=== PATIENT | female | born 2005 | race Caucasian/White ===

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

== ENCOUNTER 2023-03-11 12:53 | Emergency (ER) | payer MEDICAID, SELFPAY ==
[2023-03-11 12:54] VITALS: BP 125/86; PULSE 130; RESP 18; TEMP 36.6; O2SAT 97; BMI 16.3
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
== END 2023-03-11 16:29 | disposition home or self-care (01) ==
PROVIDERS: Emergency Provider Emergency Medicine; Visit Provider Emergency Medicine
DX: S16.1XXA Strain of muscle, fascia and tendon at neck level, initial encounter (principal); Y92.410 Unspecified street and highway as the place of occurrence of the external cause; V43.62XA Car passenger injured in collision with other type car in traffic accident, initial encounter
CPT/HCPCS: 72040; 99282

== ENCOUNTER 2024-03-02 12:31 | Emergency (ER) | payer MEDICAID, SELFPAY ==
[2024-03-02 12:32] VITALS: BP 133/98; BP 136/100; PULSE 109; RESP 18; RESP 20; TEMP 36.2; O2SAT 97
--- NOTE | 2024-03-02 12:57 | EDS_ITS ---
HPI <MARIELA Stone - Last Filed: 03/02/24 19:08> HPI - Psych History of Present Illness Chief Complaint: Anxiety Narrative Narrative: Patient presenting today due to anxiety. She reports that she has a history of painful menses, she started her menstrual period 5 days ago, she has been diagnosed with PMDD. She reports that during her period she will become fatigued and will have painful menstrual cramping. She reports that her menstrual cramping has improved. She has felt intermittently lightheaded and nauseous, she did have an episode of vomiting today. She reports that she became so lightheaded today that she began to feel anxious and was scared that she was going to pass out, prompting her to come in for evaluation. She denies any SI or HI, abdominal pain, chest pain, or shortness of breath. <Dr. Luis Heck DO - Last Filed: 03/02/24 15:30> HPI - Psych Narrative Narrative: Patient presenting today due to anxiety. She reports that she has a history of painful menses, she started her menstrual period 5 days ago, she has been diagnosed with PMDD. She reports that during her period she will become fatigued and will have painful menstrual cramping. She reports that her menstrual cramping has improved. She has felt intermittently lightheaded and nauseous, she did have an episode of vomiting today. She reports that she became so lightheaded today that she began to feel anxious and was scared that she was going to pass out, prompting her to come in for evaluation. She denies any SI or HI, no AH, VH abdominal pain, chest pain, or shortness of breath. [facility] <MARIELA Stone - Last Filed: 03/02/24 19:08> [facility] Medical History COVID Panic attack PTSD (post-traumatic stress disorder) Home Medications elagolix 150 mg tablet (Orilissa) 150 mg PO DAILY #30 tabs 01/07/24 [Rx Last Taken Unknown] hydroxyzine HCl 10 mg tablet 10 mg PO TID PRN 01/07/24 [History Last Taken Unknown] Allergy/AdvReac Type Severity Reaction Status Date / Time turkey AdvReac Fever and Verified 03/02/24 12:32 skin rash Family History Grandmother Cancer Lung- Maternal Social History current occupational status: unemployed Smoking Status: Never smoker alcohol intake: never substance use type: does not use seatbelt use: always do you feel safe at home: Yes additional social history: [place] [facility] [place] [facility] ROS <MARIELA Stone - Last Filed: 03/02/24 19:08> ROS ED Constitutional Constitutional ED: Denies chills or fever(s) Eyes Eyes: Denies change in vision Cardiovascular Cardiovascular: Denies chest pain or palpitations Respiratory/Chest Respiratory/Chest: Denies cough or dyspnea Gastrointestinal Gastrointestinal: Reports nausea and vomiting; Denies abdominal pain Genitourinary Genitourinary ED: Denies dysuria, hematuria or urinary urgency Musculoskeletal Musculoskeletal: Denies arthralgias or myalgias Integumentary Denies rash Neurologic Neurologic: Denies weakness Psychiatric Psychiatric: Reports anxiety; Denies suicidal ideation or suicidal thoughts EXAM <MARIELA Stone - Last Filed: 03/02/24 19:08> Physical Exam Const Vital Signs: 03/02/24 12:32 03/02/24 12:32 03/02/24 14:11 Temperature 97.2 F L 98.1 F Temperature Source Temporal Pulse Rate 109 H 109 H 93 Respiratory Rate 20 H 18 18 Blood Pressure 136/100 H 133/98 H 128/89 H Blood Pressure Mean 112 109 102 Pulse Ox 97 97 99 Oxygen Delivery Method Room Air Room Air Positive well nourished, well developed and no apparent distress General Appearance ED: well developed HEENT Reports normocephalic and head/scalp atraumatic Mouth ED: Yes moist mucous membranes normal Eyes PERRL and EOMs intact bilaterally Neck full ROM and supple Chest Wall inspection of chest normal Resp normal respiratory effort and clear to auscultation bilaterally Cardio regular rate and regular rhythm GI soft to palpation, non-tender, non-distended and no masses Back/Spine normal ROM and normal to inspection Extremity normal to inspection and full ROM Neuro oriented x3, CN's II-XII intact bilaterally, moves all extremities, no focal motor deficits and no sensory deficits noted Sensorium / Orientation: awake and alert Psych mental status grossly normal and thought process normal Appearance: grossly normal Attitude: calm Activity / Motor Behavior: appropriate eye contact Speech: normal speech Mood & Affect: anxious Thought Process: normal thought process Thought Content: normal thought content Insight: insight good Judgement: judgement good Skin no rashes or lesions noted and no wounds <Dr. Luis Heck DO - Last Filed: 03/02/24 15:30> Physical Exam Const Vital Signs: 03/02/24 12:32 03/02/24 12:32 03/02/24 14:11 Temperature 97.2 F L 98.1 F Temperature Source Temporal Pulse Rate 109 H 109 H 93 Respiratory Rate 20 H 18 18 Blood Pressure 136/100 H 133/98 H 128/89 H Blood Pressure Mean 112 109 102 Pulse Ox 97 97 99 Oxygen Delivery Method Room Air Room Air MDM <MARIELA Stone - Last Filed: 03/02/24 19:08> [facility] Narrative Medical decision making narrative: Patient presenting today with her parents due to anxiety. She has felt intermittently lightheaded over the past few days which is normal when she is on her menstrual period. However, she felt worse today and it was starting to make her anxious because she thought she was going to pass out. She denies any HI or SI. She is well-appearing and in no acute distress. She is requesting that labs be drawn as she is concerned that she could be anemic, CBC and BMP will be evaluated. I did offer to give patient hydroxyzine for her anxiety, she declines. She will be given IV fluids and Zofran. Labs overall are unremarkable, she refused the Zofran. On reexamination she reports improvement of her symptoms. She reports that she does follow with a therapist once a week for her anxiety. I encouraged she follow-up with her PCP and therapist. She will be discharged home in stable condition and is comfortable with plan. ED attending note: I evaluated the patient in conjunction with the KIANA. I agree with his/her statements and above findings. I have personally performed a face to face assessment of the patient and have reviewed the KIANA Note. I performed a substantive portion of the visit including all aspects of the following. I personally saw the patient performed chart review, physical exam, reviewed labs, imaging (if obtained), and formulated a treatment and management plan. This note was generated with [employer] dictation software. It may contain incorrect words, spelling, and punctuation that were not noted in review of the chart prior to signing. Lab Data Attestation: I reviewed the patient's lab results. Labs: Laboratory Results - last 24 hr 03/02/24 03/02/24 13:00 13:20 WBC 5.7 RBC 4.64 Hgb 14.2 Hct 41.8 MCV 90.1 MCH 30.6 MCHC 34.0 RDW Std Deviation 38.2 RDW Coeff of Joshua 11.6 Plt Count 317 MPV 9.4 Immature Gran % (Auto) 0.400 Neut % (Auto) 64.1 Lymph % (Auto) 26.9 Beaver % (Auto) 7.4 Eos % (Auto) 0.7 Baso % (Auto) 0.5 Absolute Neuts (auto) 3.6 Absolute Lymphs (auto) 1.53 Nucleated RBC % 0 Sodium 138 Potassium 3.5 Chloride 107 Carbon Dioxide 26.0 Anion Gap 5 BUN 10 Creatinine 0.76 Est GFR (MDRD) Af Amer 124 Est GFR (MDRD) Non-Af 102 BUN/Creatinine Ratio 13.1 Glucose 94 Calcium 9.7 Serum , Qual NEGATIVE <Dr. Luis Heck, DO - Last Filed: 03/02/24 15:30> [facility] MDM Narrative Medical decision making narrative: Patient presenting today due to anxiety. She has felt intermittently lightheaded over the past few days which is normal when she is on her menstrual period. However, she felt worse today and it was starting to make her anxious because she thought she was going to pass out. She denies any HI or SI. She is well-appearing and in no acute distress. She is requesting that labs be drawn as she is concerned that she could be anemic, CBC and BMP will be evaluated. I did offer to give patient hydroxyzine for her anxiety, she declines. She will be given IV fluids and Zofran. ED attending note: I evaluated the patient in conjunction with the KIANA. I agree with his/her statements and above findings. I have personally performed a face to face assessment of the patient and have reviewed the KIAAN Note. I performed a substantive portion of the visit including all aspects of the following. I personally saw the patient performed chart review, physical exam, reviewed labs, imaging (if obtained), and formulated a treatment and management plan. This note was generated with [employer] dictation software. It may contain incorrect words, spelling, and punctuation that were not noted in review of the chart prior to signing. Lab Data Labs: Laboratory Results - last 24 hr 03/02/24 03/02/24 13:00 13:20 WBC 5.7 RBC 4.64 Hgb 14.2 Hct 41.8 MCV 90.1 MCH 30.6 MCHC 34.0 RDW Std Deviation 38.2 RDW Coeff of Joshua 11.6 Plt Count 317 MPV 9.4 Immature Gran % (Auto) 0.400 Neut % (Auto) 64.1 Lymph % (Auto) 26.9 Beaver % (Auto) 7.4 Eos % (Auto) 0.7 Baso % (Auto) 0.5 Absolute Neuts (auto) 3.6 Absolute Lymphs (auto) 1.53 Nucleated RBC % 0 Sodium 138 Potassium 3.5 Chloride 107 Carbon Dioxide 26.0 Anion Gap 5 BUN 10 Creatinine 0.76 Est GFR (MDRD) Af Amer 124 Est GFR (MDRD) Non-Af 102 BUN/Creatinine Ratio 13.1 Glucose 94 Calcium 9.7 Serum , Qual NEGATIVE Discharge Plan Triage Chief Complaint: Anxiety ED Midlevel Provider: Candy Ashley ED Provider: Luis Heck Dx/Rx/DC Orders Clinical Impression: PMDD (premenstrual dysphoric disorder), Anxiety Instructions: PMDD Prescriptions: No Action hydroxyzine HCl 10 mg tablet 10 mg PO TID PRN Orilissa 150 mg tablet 150 mg PO DAILY Qty: 30 1RF Primary Care Provider: [facility] Safia Grullon Referrals: [facility] Safia Grullon [Primary Care Provider] - 5-7 Days Activity Restrictions/Additional Instructions: Please follow-up with your PCP and return for any worsening of your symptoms. Disposition Disposition: Home, Self Care Discharge Date/Time: 03/02/24 14:13
[2024-03-02] MEDS: 0.9% Normal Saline (1000mL) 1,000 ML 999 ML IV (13:09)
[2024-03-02 13:12] LABS: Absolute Lymphocyte Count 1.53 X10^3/uL (0.83-4.51); Absolute Neutrophil Count 3.6 X10^3/uL (2.0-7.7); Basophil# 0.03 X10^3/uL; Basophil% 0.5 % (0-1); Eosinophil# 0.04 X10^3/uL; Eosinophils% 0.7 % (0-5); Hematocrit 41.8 % (37-47); Hemoglobin 14.2 g/dL (12.0-15.0); Lymphocyte # 1.53 X10^3/ul (0.83-4.51); Lymphocyte % 26.9 % (19-41); Mean Corpuscular Hgb 30.6 pg (27.0-32.0); Mean Corpuscular Volume 90.1 fL (81-99); Mean Platelet Vol. 9.4 fl (6.2-12.0); Monocyte# 0.42 X10^3/uL; Monocyte% 7.4 % (0-10); NRBC Flagged by Analyzer 0 % (0-5); Neutrophil # 3.64 X10^3/uL (2.7-7.7); Neutrophil % 64.1 % (47-70); Platelet Count 317 K/mm3 (150-450); RBC Distribution Width CV 11.6 % (11.6-14.6); RBC Distribution Width SD 38.2 fl (35.1-43.9); Red Blood Count 4.64 M/mm3 (4.2-5.4); White Blood Count 5.7 K/mm3 (4.4-11.0)
[2024-03-02 13:29] LABS: Anion Gap 5 (5-15); BUN 10 mg/dL (7-18); BUN/Creat Ratio 13.1 RATIO (10-20); Calcium,Total 9.7 mg/dL (8.5-10.1); Chloride 107 mmol/L (98-107); Creatinine, Serum 0.76 mg/dL (0.55-1.02); EST Glomerular Filtration Rate 102 mL/min (>60); Est Glom Filt Rate - Afr Amer 124 mL/min (>60); Glucose 94 mg/dL (74-106); Potassium 3.5 mmol/L (3.5-5.1); Sodium Level 138 mmol/L (136-145)
[2024-03-02 13:41] LABS: Internal QC Validated? YES +Cl - CLEAR BKGD; Pregnancy, Serum, hCG Quali. NEGATIVE Negative
[2024-03-02 14:11] VITALS: BP 128/89; PULSE 93; RESP 18; TEMP 36.7; O2SAT 99
== END 2024-03-02 14:13 | disposition home or self-care (01) ==
PROVIDERS: Physician Assistant; Emergency Provider Emergency Medicine; Visit Provider Emergency Medicine
DX: F41.9 Anxiety disorder, unspecified (principal); F32.81 Premenstrual dysphoric disorder; Z79.899 Other long term (current) drug therapy
CPT/HCPCS: 80048; 84703; 85025; 96361; 96374; 99282; J7030; A4216

== ENCOUNTER → 2024-07-15 | Outpatient (CLI) | payer MEDICAID, SELFPAY ==
--- NOTE | 2024-07-15 15:44 | US_ITS ---
STUDY: ULTRASOUND OF THE FEMALE PELVIS - COMPLETE REASON FOR EXAM: Female, 18 years old. MENSTRUAL CRAMPS LMP: July 04, 2024. TECHNIQUE: Transvaginal TECHNICAL QUALITY: Adequate. COMPARISON: None. FINDINGS: The uterus is anteverted and is in a midline position. The uterus measures 6 cm x 3.4 cm x 2.5 cm. Normal uterine cervix. The endometrium measures 5.7 mm in thickness, and is heterogeneous (striated). There is no demonstrated endometrial mass. There is no demonstrated myometrial mass. I.U.D. - The patient does not have an I.U.D. The right ovary is visualized. The right ovary measures 1.8 cm x 1.9 cm x 1.4 cm. There is no right ovarian cyst or ovarian mass. There is no visualized right adnexal mass or complex lesion. There is normal arterial and normal venous vascularity. The left ovary is visualized. The left ovary measures 2.7 cm x 2.2 cm x 2 cm. There is no left ovarian cyst or ovarian mass. There is no visualized left adnexal mass or complex lesion. There is normal arterial and normal venous vascularity. There is no fluid in the cul-de-sac. US/Transvaginal Non- IMPRESSION: Normal female pelvis. Electronically Signed: Aric Carrillo MD at 12:43 EDT ,
== END | disposition home or self-care (01) ==
LOC: US 15:42
PROVIDERS: PCP Family Medicine; Referring Provider Family Medicine; Visit Provider Family Medicine
DX: N94.6 Dysmenorrhea, unspecified (principal)
CPT/HCPCS: 76830

== ENCOUNTER 2025-01-29 05:11 | Emergency (ER) | payer MEDICAID, SELFPAY ==
[2025-01-29 05:13] VITALS: BP 147/95; PULSE 104; RESP 13; TEMP 36.8; O2SAT 99; BMI 15.3
--- NOTE | 2025-01-29 05:37 | EKG12_ITS ---
Test Reason : PALPITATIONS Blood Pressure : */* mmHG Vent. Rate : 92 BPM Atrial Rate : 92 BPM P-R Int : 128 ms QRS Dur : 90 ms QT Int : 364 ms P-R-T Axes : 71 93 -2 degrees QTcB Int : 450 ms Normal sinus rhythm with sinus arrhythmia Rightward axis RSR' or QR pattern in V1 suggests right ventricular conduction delay T wave abnormality, consider inferior ischemia Abnormal ECG Confirmed by DEMETRIUS AHUMADA MD ([id number]), sports editor THIERNO EID ([id number]) on 02/01/2025 9:15:21 AM Referred By: ZACK Confirmed By: DEMETRIUS AHUMADA MD
--- NOTE | 2025-01-29 05:37 | RAD_ITS ---
PROCEDURE: CHEST 1 VIEW (PORTABLE) 01/29/2025 REASON FOR EXAM: CHEST PAIN TECHNIQUE: Frontal view of the chest. AP portable upright COMPARISON: None available FINDINGS: The lungs are clear. The cardiac and mediastinal contours are within limits. The visualized osseous structures appear within limits. RAD/Chest 1 View (Portable) IMPRESSION: No evidence of acute disease. Reading Location: [id number]
[2025-01-29 05:45] VITALS: BP 125/83; PULSE 93; RESP 18; O2SAT 98
[2025-01-29] MEDS: 0.9% Normal Saline (1000mL) 1,000 ML 999 ML IV (05:46)
[2025-01-29 05:59] LABS: Absolute Lymphocyte Count 1.88 X10^3/uL (0.83-4.51); Absolute Neutrophil Count 4.3 X10^3/uL (2.0-7.7); Basophil# 0.03 X10^3/uL; Basophil% 0.4 % (0-1); Eosinophil# 0.03 X10^3/uL; Eosinophils% 0.4 % (0-5); Hematocrit 41.4 % (37-47); Hemoglobin 14.7 g/dL (12.0-15.0); Lymphocyte # 1.88 X10^3/ul (0.83-4.51); Mean Corp Hgb Conc 35.5 g/dL (32-36); Mean Corpuscular Hgb 31.2 pg (27.0-32.0); Mean Corpuscular Volume 87.9 fL (81-99); Mean Platelet Vol. 10.1 fl (6.2-12.0); Monocyte# 0.45 X10^3/uL; Monocyte% 6.7 % (0-10); NRBC Flagged by Analyzer 0 % (0-5); Neutrophil # 4.31 X10^3/uL (2.7-7.7); Neutrophil % 64.2 % (47-70); Platelet Count 319 K/mm3 (150-450); RBC Distribution Width CV 11.5 % (11.6-14.6); RBC Distribution Width SD 37.2 fl (35.1-43.9); Red Blood Count 4.71 M/mm3 (4.2-5.4); White Blood Count 6.7 K/mm3 (4.4-11.0)
--- NOTE | 2025-01-29 06:33 | EDS_ITS ---
HPI History of Present Illness Chief Complaint: Palpitations Narrative Narrative: Patient is a 19-year-old female past medical history of PTSD, panic attack, COVID, migraines who presents to the emerged part with a chief complaint of racing heart rate nausea vomiting concern for dental infection. She states that she is currently being worked up for POTS this point in time and notes that this is been going on since 2019 after however having COVID. She states that she has been seeing her dentist today. States that she was given a prescription for amoxicillin for her teeth. Patient states that this evening she noted that her heart rate was elevated to 160s and she was not feeling well overall and was concerned for this dental infection therefore she came here for the valuation management. Patient denies any sick contacts. [facility] Medical History PTSD (post-traumatic stress disorder) Panic attack COVID Home Medications ?Medication ?Instructions ?Recorded ?Last Taken ?Type NK 01/29/25 Unknown History Allergy/AdvReac Type Severity Reaction Status Date / Time turkey AdvReac Fever and Verified 01/29/25 05:13 skin rash Family History Grandmother Cancer Lung- Maternal Social History current occupational status: unemployed Smoking Status: Never smoker alcohol intake: never substance use type: does not use seatbelt use: always do you feel safe at home: Yes additional social history: Currently at [facility] [place] but transferring to [facility]- [facility] ROS ED ROS Narrative Constitutional: Denies fevers, chills, headaches Eyes: Denies changes double vision blurry vision Cardiovascular: Denies chest pain denies palpitations Respiratory: Denies coughing wheezing shortness of breath Abdomen: Denies abdominal pain nausea vomit diarrhea : Denies urinary symptoms Neurological: Denies numbness, weakness, tingling Musculoskeletal: Denies back pain Skin: Denies rashes or lesions EXAM Physical Exam Narrative Exam Narrative: General: Patient lying in bed rest comfortably did not appear to be in acute distress Head: Atraumatic, normocephalic Eyes, ears, nose and throat: PERRL bilaterally, EOMI bilaterally, no conjunctival injection noted, patient has poor dentition noted however no concern for abscess at this point in time, no sublingual swelling Neck: Soft, supple, trachea midline, no concern for Aleksandar angina Cardiovascular: Regular rate and rhythm no murmurs gallops rubs noted Respiratory: Clear to auscultation bilaterally Abdomen: Soft, nondistended, nontender to palpation Extremities: +5/5 strength in bilateral upper and lower extremities, radial pulse +2/4 in the bilateral extremities Neurological: Patient following commands knew that that she was at [facility] years 2024 Skin: Warm, dry, tact no rashes or lesions noted Const Vital Signs: 01/29/25 05:13 01/29/25 05:45 01/29/25 05:45 Temperature 98.2 F Temperature Source Oral Pulse Rate 104 H 93 Respiratory Rate 13 18 Blood Pressure 147/95 H 125/83 H Blood Pressure Mean 112 97 Pulse Ox 99 98 98 Oxygen Delivery Method Room Air Room Air 01/29/25 07:24 Temperature Temperature Source Pulse Rate 88 Respiratory Rate 16 Blood Pressure 110/87 H Blood Pressure Mean 94 Pulse Ox 98 Oxygen Delivery Method Room Air MDM MDM MDM Narrative Medical decision making narrative: Patient is a 19-year-old female who presented to the emerged part with chief complaint of elevated heart rate, nausea vomiting concern for dental infection. On the differential diagnose includes but not limited to cavities, periapical abscess although do not see this clinically on exam, hyperthyroidism, anxiety, and tach. Once workup is obtained reviewed she will be reevaluated. Patient be given IV fluids. Patient's CBC was largely unremarkable no evidence leukocytosis white blood count normal at 6.7, hemoglobin was 14.7, plate count normal 319. Patient sodium normal 137, testing normal 3.3, creatinine was normal at 0.79. Patient's glucose 111, troponin was less than 6, EKG reviewed showed sinus rhythm with a rate of 92 bpm with a AL interval of 128 bpm. Patient TSH was 3.82 with a free T4 and T3 of 2 and 4.1 respectively. Patient's test was negative. Patient's chest x-ray reviewed by myself and by radiology which showed no acute cardiopulmonary processes. On reevaluation the patient she is feeling much better she would like to go home at this point time. Patient ambulated well here in the emergency department without difficulty. She felt well. Patient states that she already has a presc ription at home for her dental pain and she is advised to take this as well as go to her dental appointment today. She is encouraged return with worsening symptoms or concerns otherwise she is to follow-up with her doctor in outpatient setting. She is agreeable this plan all question concerns answered she was discharged home in stable condition. Lab Data Labs: Laboratory Results - last 24 hr 01/29/25 01/29/25 05:23 05:23 WBC 6.7 RBC 4.71 Hgb 14.7 Hct 41.4 MCV 87.9 MCH 31.2 MCHC 35.5 RDW Std Deviation 37.2 RDW Coeff of Joshua 11.5 L Plt Count 319 MPV 10.1 Immature Gran % (Auto) 0.300 Neut % (Auto) 64.2 Lymph % (Auto) 28.0 Alger % (Auto) 6.7 Eos % (Auto) 0.4 Baso % (Auto) 0.4 Absolute Neuts (auto) 4.3 Absolute Lymphs (auto) 1.88 Nucleated RBC % 0 Sodium 137 Potassium 3.3 Chloride 104 Carbon Dioxide 15.9 L Anion Gap 17 H BUN 11 Creatinine 0.79 Estim Creat Clear Calc 71.84 Est GFR (MDRD) Non-Af 110 BUN/Creatinine Ratio 13.8 Glucose 111 H Calcium 9.7 Troponin T High Sens < 6 TSH 3.620 3.820 Free T4 2.00 H Free T3 pg/dL 4.1 H Serum , Qual NEGATIVE Radiography Diagnostic Testing: Clinical Impression(s) from Imaging Studies Chest X-Ray 01/29/25 05:37 IMPRESSION: No evidence of acute disease. Reading Location: [facility] Discharge Plan Triage Chief Complaint: Palpitations ED Provider: Ashu Smith Dx/Rx/DC Orders Clinical Impression: Nausea & vomiting, Palpitations, Pain, dental Prescriptions: No Action NK Primary Care Provider: Shine Castro Referrals: Shine Castro MD [Primary Care Provider] - Activity Restrictions/Additional Instructions: Go to your dentist appointment today. Take antibiotics as prescribed. Return with worsening symptoms or concerns. Your chest x-ray is normal as well as the rest your blood work. Print Language: [place]ese Disposition Disposition: Home, Self Care
[2025-01-29 06:54] LABS: Troponin T High Sensitivity < 6 ng/L (<=14)
[2025-01-29 07:03] LABS: Anion Gap 17 (5-15); BUN 11 mg/dL (4-19); BUN/Creat Ratio 13.8 RATIO (10-20); Calcium,Total 9.7 mg/dL (7.6-11.0); Carbon Dioxide 15.9 mmol/L (21.0-32.0); Chloride 104 mmol/L (98-108); Creatinine, Serum 0.79 mg/dL (0.70-1.20); EST Glomerular Filtration Rate 110 (>60); Estimated Creatinine Clearance 71.84 ml/min (50-250); Glucose 111 mg/dL (70-99); Internal QC Validated? YES +Cl - CLEAR BKGD; Potassium 3.3 mmol/L (3.3-5.1); Pregnancy, Serum, hCG Quali. NEGATIVE Negative; Sodium Level 137 mmol/L (133-145)
[2025-01-29 07:17] LABS: Free T3 4.1 pg/mL (2.18-3.98)
[2025-01-29 07:24] VITALS: BP 110/87; PULSE 88; RESP 16; O2SAT 98
[2025-01-29 07:35] VITALS: BP 110/87; PULSE 88; RESP 17; TEMP 36.3; O2SAT 99
== END 2025-01-29 07:43 | disposition home or self-care (01) ==
PROVIDERS: Emergency Provider Emergency Medicine; PCP Family Medicine; Visit Provider Emergency Medicine
DX: R00.2 Palpitations (principal); R11.2 Nausea with vomiting, unspecified; K08.89 Other specified disorders of teeth and supporting structures
CPT/HCPCS: 71045; 80048; 84439; 84443; 84481; 84484; 84703; 85025; 93005; 96360; 99284; A4216

== ENCOUNTER → 2025-03-09 | Outpatient (CLI) | payer MEDICAID, SELFPAY ==
--- NOTE | 2025-03-09 12:59 | US_ITS ---
PROCEDURE: THYROID 03/09/2025 REASON FOR EXAM: ELEVATED T4 TECHNIQUE: High-frequency thyroid ultrasound, including grayscale and color-flow images. REFERENCE LINKS: TI-RADS Chart: [email or web address] TI-RADS Calculator Tool with Reference Images: [email or web address] COMPARISON: None FINDINGS: Right thyroid lobe size: 4.4 x 1.0 x 1.0 cm Left thyroid lobe size: 3.0 x 1.0 x 1.0 cm Isthmus: 0.1 cm Background parenchymal echotexture is homogeneous. Nodules: None US/Thyroid IMPRESSION: Unremarkable thyroid ultrasound, without suspicious nodularity. Reading Location: [id number]
== END | disposition home or self-care (01) ==
LOC: US 12:58
PROVIDERS: PCP Family Medicine; Referring Provider Family Medicine; Visit Provider Family Medicine
DX: R94.6 Abnormal results of thyroid function studies (principal)
CPT/HCPCS: 76536

== ENCOUNTER → 2025-03-10 | Outpatient (CLI) | payer MEDICAID, SELFPAY ==
--- NOTE | 2025-03-10 12:46 | ECHOD_ITS ---
Reason For Study Reason For Study: PALPITATIONS Procedure This was a 2D Doppler, Color Flow transthoracic echocardiogram. Exam performed in department. Left Ventricle Normal size and thickness. The LV systolic function is normal. EF is 65 %. Normal diastololic function. Right Ventricle Normal right ventricle. Atria The left and right atria are normal. Mitral Valve Normal mitral valve. Trivial mitral valve insufficiency. Tricuspid Valve Trivial tricuspid valve insufficiency. Unable to estimate RV systolic pressure due to insufficient tricuspid regurgitant envelope. Aortic Valve Trisinus/trileaflet aortic valve. Pulmonic Valve The pulmonic valve is not well visualized. Trivial pulmonic valve insufficiency. MMode/2D Measurements & Calculations LVIDd: 3.9 cm IVSd: 0.71 cm Ao root diam: 2.5 cm LVIDs: 2.6 cm LVPWd: 0.58 cm RVDd: 1.9 cm FS: 33.2 % SV(MOD-sp4): 29.8 ml LVAd ap4: 19.0 cm2 LVAd ap2: 16.5 cm2 LVLd ap4: 6.7 cm LVLd ap2: 6.3 cm SI(MOD-sp4): 21.7 ml/m2 EDV(MOD-sp4): 46.8 ml EDV(MOD-sp2): 35.1 ml EDV(sp4-el): 45.8 ml EDV(sp2-el): 36.8 ml LVAs ap4: 10.3 cm2 LVAs ap2: 9.4 cm2 LVLs ap4: 5.7 cm LVLs ap2: 5.6 cm ESV(MOD-sp4): 17.0 ml ESV(MOD-sp2): 12.5 ml ESV(sp4-el): 16.0 ml ESV(sp2-el): 13.3 ml EF(MOD-sp4): 63.6 % EF(MOD-sp2): 64.3 % EF(sp4-el): 65.1 % SV(MOD-sp2): 22.6 ml SV(sp4-el): 29.8 ml LA dimension(2D): 1.8 cm SI(MOD-sp2): 16.5 ml/m2 TAPSE: 1.9 cm Time Measurements MV dec time: 0.16 sec Doppler Measurements & Calculations MV E max vernon: 65.8 cm/sec Lat Peak E' Vernon: 13.9 cm/sec Med Peak E' Vernon: 10.1 cm/sec MV A max vernon: 54.8 cm/sec E/E' lat: 4.7 E/E' med: 6.5 MV E/A: 1.2 MV dec slope: 442.6 cm/sec2 Ao V2 max: 102.2 cm/sec LV V1 max: 87.6 cm/sec Ao max P.2 mmHg LV V1 max P.1 mmHg Ao V2 mean: 71.9 cm/sec LV V1 mean P.5 mmHg Ao mean P.2 mmHg LV V1 mean: 58.5 cm/sec Ao V2 VTI: 16.5 cm LV V1 VTI: 13.9 cm AV (velocity ratio): 0.84 PA V2 max: 81.1 cm/sec PA V2 mean: 63.1 cm/sec ECHO/Echo Complete Interpretation Summary The LV systolic function is normal. EF is 65 %. Normal diastololic function. Ordering Physician: Shine Castro Referring Physician: Shine Castro Performed By: Lakisha Palmer RDCS, RVT
== END | disposition home or self-care (01) ==
LOC: CVS 12:45
PROVIDERS: PCP Family Medicine; Referring Provider Family Medicine; Visit Provider Family Medicine
DX: R00.2 Palpitations (principal)
CPT/HCPCS: 93306

== ENCOUNTER → 2025-06-25 | Outpatient (CLI) | payer MEDICAID, SELFPAY ==
--- NOTE | 2025-06-25 15:34 | RAD_ITS ---
PROCEDURE: SHOULDER MIN 2 VIEWS 06/25/2025 REASON FOR EXAM: LEFT SHOULDER PAIN TECHNIQUE: SHOULDER MIN 2 VIEWS Laterality: Left COMPARISON: None FINDINGS: BONES: No acute fracture or focal osseous lesion. JOINTS: No dislocation. The joint spaces are normal. SOFT TISSUES: The soft tissues are unremarkable. RAD/Shoulder min 2 Views IMPRESSION: No acute findings. Reading Location: [id number]
--- OUTSIDE RECORDS SUMMARY | 2025-06-25 19:10 | XMS RPT_ITS | CCD ---
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 501.9520, L100.0100, L501.4021, L500.2500 ####[facility] [address] [place], [address] Platelets (Bld) [#/Vol] 319 10*3/uL Normal 150-450 [facility] Comment on above: Performed By: #### L 501.9520, L100.0100, L501.4021, L500.2500 ####[facility] [address] [place], [address] RBC (Bld) [#/Vol] 4.71 10*6/uL Normal 4.2-5.4 [facility] Comment on above: Performed By: #### L 501.9520, L100.0100, L501.4021, L500.2500 ####[facility] [address] [place], [address] RDW SD 37.2 fl Normal 35.1-43.9 [facility] Comment on above: Performed By: #### L 501.9520, L100.0100, L501.4021, L500.2500 ####[facility] [address] [place], [address] WBC (Bld) [#/Vol] 6.7 10*3/uL Normal 4.4-11.0 [facility] Comment on above: Performed By: #### L 501.9520, L100.0100, L501.4021, L500.2500 ####[facility] [address] [place], [address] Carbon dioxide, total [Moles /volume] in Central venous bloodOrdered By: Asuh Smith on 01-29-2025 CO2 [Moles/Vol] 15.9 mmol/L Low 21.0-32.0 [facility] Chest 1 View (Portable)on Chest 1 View (Portable) [facility] Imaging Services [address] [place] [address] Chest 1 View (Portable) MR#: [id number] Acct: [id number] Name: DORITA QUIÑONES Rep #: [id number] : 2005 F 19 From: Segundo Martinez MD PCP: Dr. Shine Castro MD Status: [facility] ER Study: Chest 1 View (Portable) Date of Exam: 01/29/25 Exam# [id number] Ordering Dr: Ashu Smith DO PROCEDURE: CHEST 1 VIEW (PORTABLE) 01/29/2025 REASON FOR EXAM: CHEST PAIN TECHNIQUE: Frontal view of the chest. AP portable upright COMPARISON: None available FINDINGS: The lungs are clear. The cardiac and mediastinal contours are within limits. The visualized osseous structures appear within limits. RAD/Chest 1 View (Portable) IMPRESSION: No evidence of acute disease. Reading Location: [id number] CC: Dr. Shine Castro MD; Dr. Ashu Smith DO Certified Pesticide Applicator: Signed Normal [facility] Chloride assayOrdered By: Kwabena Smith on 01-29-2025 Chloride [Moles/Vol] 104 mmol/L 98-108 [facility] Emergency Department Summary on 01-29-2025 Emergency Department Summary [facility] Medical Records Department [address] [place] [address] Emergency Department Summary 01/29/25 MR#: [id number] Acct: [id number] Name: DORITA QUIÑONES Rep #: [id number] : 2005 19 From: Ashu Smith DO PCP: Dr. Shine Castro MD Status:REG ER Location: ED HPI History of Present Illness Chief Complaint: Palpitations Narrative Narrative: Patient is a 19-year-old female past medical history of PTSD, panic attack, COVID, migraines who presents to the emerged part with a chief complaint of racing heart rate nausea vomiting concern for dental infection. She states that she is currently being worked up for POTS this point in time and notes that this is been going on since 2019 after however having COVID. She states that she has been seeing her dentist today. States that she was given a prescription for amoxicillin for her teeth. Patient states that this evening she noted that her heart rate was elevated to 160s and she was not feeling well overall and was concerned for this dental infection therefore she came here for the valuation management. Patient denies any sick contacts. [facility] Medical History PTSD (post-traumatic stress disorder) Panic attack COVID Home Medications ???Medication ???Instructions ???Recorded ???Last Taken ???Type NK 01/29/25 Unknown History Allergy/AdvReac Type Severity Reaction Status Date / Time turkey AdvReac Fever and Verified 01/29/25 05:13 skin rash Family History Grandmother Cancer Lung- Maternal Social History current occupational status: unemployed Smoking Status: Never smoker alcohol intake: never substance use type: does not use seatbelt use: always do you feel safe at home: Yes additional social history: Currently at [facility] but transferring to [facility] ROS ROS ED ROS Narrative Constitutional: Denies fevers, chills, headaches Eyes: Denies changes double vision blurry vision Cardiovascular: Denies chest pain denies palpitations Respiratory: Denies coughing wheezing shortness of breath Abdomen: Denies abdominal pain nausea vomit diarrhea : Denies urinary symptoms Neurological: Denies numbness, weakness, tingling Musculoskeletal: Denies back pain Skin: Denies rashes or lesions EXAM Physical Exam Narrative Exam Narrative: General: Patient lying in bed rest comfortably did not appear to be in acute distress Head: Atraumatic, normocephalic Eyes, ears, nose and throat: PERRL bilaterally, EOMI bilaterally, no conjunctival injection noted, patient has poor dentition noted however no concern for abscess at this point in time, no sublingual swelling Neck: Soft, supple, trachea midline, no concern for Aleksandar angina Cardiovascular: Regular rate and rhythm no murmurs gallops rubs noted Respiratory: Clear to auscultation bilaterally Abdomen: Soft, nondistended, nontender to palpation Extremities: +5/5 strength in bilateral upper and lower extremities, radial pulse +2/4 in the bilateral extremities Neurological: Patient following commands knew that that she was at [facility] years 2024 Skin: Warm, dry, tact no rashes or lesions noted Const Vital Signs: 01/29/25 05:13 01/29/25 05:45 01/29/25 05:45 Temperature 98.2 F Temperature Source Oral Pulse Rate 104 H 93 Respiratory Rate 13 18 Blood Pressure 147/95 H 125/83 H Blood Pressure Mean 112 97 Pulse Ox 99 98 98 Oxygen Delivery Method Room Air Room Air 01/29/25 07:24 Temperature Temperature Source Pulse Rate 88 Respiratory Rate 16 Blood Pressure 110/87 H Blood Pressure Mean 94 Pulse Ox 98 Oxygen Delivery Method Room Air MDM MDM MDM Narrative Medical decision making narrative: Patient is a 19-year-old female who presented to the emerged part with chief complaint of elevated heart rate, nausea vomiting concern for dental infection. On the differential diagnose includes but not limited to cavities, periapical abscess although do not see this clinically on exam, hyperthyroidism, anxiety, and tach. Once workup is obtained reviewed she will be reevaluated. Patient be given IV fluids. Patient's CBC was largely unremarkable no evidence leukocytosis white blood count normal at 6.7, hemoglobin was 14.7, plate count normal 319. Patient sodium normal 137, testing normal 3.3, creatinine was normal at 0.79. Patient's glucose 111, troponin was less than 6, EKG reviewed showed sinus rhythm with a rate of 92 bpm with a [place] interval of 128 bpm. Patient TSH was 3.82 with a free T4 and T3 of 2 and 4.1 respectively. Patient's test was negative. Patient's chest x-ray revie (more content not included)... Normal [facility] Eosinophil percentageOrdered By: Ashu Smith on 01-29-2025 Eosinophils/100 WBC (Bld) 0.4 % 0-5 [facility] Erythrocyte distribution wid th ratioOrdered By: Ashu Smith on 01-29-2025 Erythrocyte distribution width (RBC) [Ratio] 11.5 % Low 11.6-14.6 [facility] Erythrocyte distribution wid th standard deviationOrdered By: Ashu Smith on 01-29-2025 Erythrocyte distribution width (RBC) [Entitic vol] 37.2 fL 35.1-43.9 [facility] Erythrocyte distribution width (RBC) [Ratio] 37.2 fl 35.1-43.9 [facility] Estimation of creatinine chika aranceOrdered By: Ashu Smith on 01-29-2025 Estimated Creatinine Clearance Calc 71.84 ml/min 50-250 [facility] Free T3on 01-29-2025 Free T3 [Mass/Vol] 4.1 pg/mL High 2.18-3.98 [facility] Comment on above: Performed By: #### L 506.0400, L501.9520, L501.18585, L700.6800 #### [facility] [address] [place], [address] Free [id number] By: Ashu packer on 01-29-2025 Free T3 [Mass/Vol] 4.1 pg/mL High 2.18-3.98 [facility] Free Triiodothyronine (T3) pg/dL 4.1 pg/mL High 2.18-3.98 [facility] GFR/1.73 sq M.predicted cyrus g non-blacks MDRD (S/P/Bld) [Vol rate/Area]Ordered By: Ashu Smith on 01-29-2025 Estimated GFR (MDRD) Non-Af Amer 110 >60 [facility] Comment on above: mL/min/1.73m2 CKD-EP I Creatinine Equation (2020) Glomerular filtration rate ( GFR) estimation/1.73 sq m using serum, plasma, or whole bOrdered By: Ashu Smith on 01-29-2025 GFR/1.73 sq M.predicted among non-blacks MDRD (S/P/Bld) [Vol rate/Area] 110 mL/min/{1.73_m2} >60 [facility] Comment on above: mL/min/1.73m2 CKD-EP I Creatinine Equation (2020) Hematocrit Auto (Bld) [Volum e fraction]Ordered By: Ashu Smith on 01-29-2025 Hematocrit (Bld) [Volume fraction] 41.4 % 37-47 [facility] Hemoglobin measurementOrdere d By: Ashu Smith on 01-29-2025 Hemoglobin (Bld) [Mass/Vol] 14.7 g/dL 12.0-15.0 [facility] Immature granulocytes/100 WB C Auto (Bld)Ordered By: Ashu Smith on 01-29-2025 Immature granulocytes/100 WBC (Bld) 0.300 % 0.0-0.9 [facility] Comment on above: IG% - Immature Granu locytes (promyelocytes, myelocytes and metamyelocytes) > 1% indicates that a LEFT SHIFT is Present. L499.0042on 01-29-2025 Trop T High Sen Normal <=14 [facility] Comment on above: Result Comment: LISS ENT DISCHARGED-NO SPECIMEN REC'D Performed By: #### L 499.0042 ####[facility] [address] [place], [address] L499.0043on 01-29-2025 Trop T High Sen Normal <=14 [facility] Comment on above: Result Comment: Canc elled via OM: Order cancelled - Patient discharged Performed By: #### L 499.0043 ####[facility] [address] [place], [address] L501.4021on 01-29-2025 Trop T High Sen < 6 Normal <=14 [facility] Comment on above: Performed By: #### L 501.9520, L100.0100, L501.4021, L500.2500 ####[facility] [address] [place], [address] Lymphocytes Auto (Unsp spec) [#/Vol]Ordered By: Ashu Smith on 01-29-2025 Lymphocytes (Bld) [#/Vol] 1.88 10*3/uL 0.83-4.51 [facility] Lymphocytes/100 WBC Auto (Un sp spec)Ordered By: Ashu Smith on 01-29-2025 Lymphocytes/100 WBC (Bld) 28.0 % 19-41 [facility] MCV (mean corpuscular volume ) determinationOrdered By: Ashu Smith on 01-29-2025 MCV (RBC) [Entitic vol] 87.9 fL 81-99 [facility] Mean corpuscular hemoglobin (MCH) determinationOrdered By: Ashu Smith on 01-29-2025 MCH (RBC) [Entitic mass] 31.2 pg 27.0-32.0 [facility] Mean corpuscular hemoglobin concentration (MCHC) determinationOrdered By: Ashu Smith on 01-29-2025 MCHC (RBC) [Mass/Vol] 35.5 g/dL 32-36 [facility] Mean platelet volume determi nationOrdered By: Ashu Smith on 01-29-2025 Platelet mean volume (Bld) [Entitic vol] 10.1 fL 6.2-12.0 [facility] Monocyte percentageOrdered B y: Ashu Smith on 01-29-2025 Monocytes/100 WBC (Bld) 6.7 % 0-10 [facility] Neutrophil percentageOrdered By: Ashu Smith on 01-29-2025 Neutrophils/100 WBC (Bld) 64.2 % 47-70 [facility] No Panel InformationOrdered By: Ashu Smith on 01-29-2025 Troponin T High Sensitivity < 6 ng/L <14 [facility] Nucleated red blood cell per centageOrdered By: Ashu Smith on 01-29-2025 Nucleated RBC/100 WBC (Bld) [Ratio] 0 % 0-5 [facility] Platelet countOrdered By: Kwabena Smith on 01-29-2025 Platelets (Bld) [#/Vol] 319 10*3/uL 150-450 [facility] Potassium (Unsp spec) [Mass/ Vol]Ordered By: Ashu Smith on 01-29-2025 Potassium [Moles/Vol] 3.3 mmol/L 3.3-5.1 [facility] Potassium measurement (mass/ volume)Ordered By: Ashu Smith on 01-29-2025 Potassium (Unsp spec) [Mass/Vol] 3.3 mmol/L 3.3-5.1 [facility] ,Serum,hCG Quali.on 01-29-2025 HCG, SERUM QUAL Negative Normal [facility] Comment on above: Performed By: #### L 506.0400, L501.9520, L501.85483, L700.6800 #### [facility] [address] [place], [address] RBC Auto (Bld) [#/Vol]Ordere d By: Ashu Smith on 01-29-2025 RBC (Bld) [#/Vol] 4.71 10*6/uL 4.2-5.4 [facility] Serum beta-hCG test, qualita tiveOrdered By: Ashu Smith on 01-29-2025 Beta HCG ( test) Ql Negative [facility] Serum creatinine measurement (mass/volume)Ordered By: Ashu Smith on 01-29-2025 Creatinine [Mass/Vol] 0.79 mg/dL 0.70-1.20 [facility] Serum glucose measurement (m ass/volume)Ordered By: Ashu Smith on 01-29-2025 Glucose [Mass/Vol] 111 mg/dL High 70-99 [facility] Serum or plasma calcium chelsea urement (mass/volume)Ordered By: Ashu Smith on 01-29-2025 Calcium [Mass/Vol] 9.7 mg/dL 7.6-11.0 [facility] Serum or plasma urea nitroge n measurement (mass/volume)Ordered By: Ashu Smith on 01-29-2025 Urea nitrogen [Mass/Vol] 11 mg/dL 4-19 [facility] Sodium levelOrdered By: Gilberto Smith on 01-29-2025 Sodium [Moles/Vol] 137 mmol/L 133-145 [facility] T4 Free Directon 01-29-2025 T4 FREE DIRECT 2.00 ng/dL High 0.76-1.46 [facility] Comment on above: Performed By: #### L 506.0400, L501.9520, L501.82635, L700.6800 #### [facility] [address] [place], [place], [address] T4 freeOrdered By: Ashu packer on 01-29-2025 Free T4 [Mass/Vol] 2.00 ng/dL High 0.76-1.46 [facility] TSH DL <= 0.005 mIU/L QnOrde red By: Ashu Smith on 01-29-2025 Thyroid Stimulating Hormone (TSH) 3.820 uIU/mL 0.300-4.200 [facility] TSH Qn 3.820 uIU/mL 0.300-4.200 [facility] Thyroid Stim Hormone (TSH)on 01-29-2025 TSH 3.820 uIU/mL Normal 0.300-4.200 [facility] Comment on above: Performed By: #### L 506.0400, L501.9520, L501.47887, L700.6800 #### [facility] [address] [place], [address] TSH 3.620 uIU/mL Normal 0.300-4.200 [facility] Comment on above: Performed By: #### L 501.9520, L100.0100, L501.4021, L500.2500 ####[facility] [address] [place], [address] White blood cell (WBC) count Ordered By: Ashu Smith on 01-29-2025 WBC (Bld) [#/Vol] 6.7 10*3/uL 4.4-11.0 [facility] COMPLETE BLOOD COUNT WITH DI FFERENTIALon 12-05-2024 Basophil \P\ 0.02 10E3/???L Invalid Interpretation Code 0.02-0.06 [facility] Comment on above: Order Comment: Relea se to patient->Automatic Basophils/100 WBC (Bld) 0.2 % Low 0.3-0.9 [facility] Comment on above: Order Comment: Relea se to patient->Automatic Eosinophil \P\ 0.00 10E3/???L Low 0.04-0.27 [facility] Comment on above: Order Comment: Relea se to patient->Automatic Eosinophils/100 WBC (Bld) 0.0 % Low 0.6-3.8 [facility] Comment on above: Order Comment: Relea se to patient->Automatic Erythrocyte distribution width (RBC) [Ratio] 11.1 % Low 11.9-14.8 [facility] Comment on above: Order Comment: Relea se to patient->Automatic Hematocrit (Bld) [Volume fraction] 42.1 % Invalid Interpretation Code 35.5-44.6 [facility] Comment on above: Order Comment: Relea se to patient->Automatic Hemoglobin (Bld) [Mass/Vol] 14.9 g/dL High 11.4-14.8 [facility] Comment on above: Order Comment: Relea se to patient->Automatic Immature granulocytes/100 WBC (Bld) 0.4 % Invalid Interpretation Code 0.2-0.5 [facility] Comment on above: Order Comment: Relea se to patient->Automatic Result Comment: Hannah ture Granulocyte Percent includes promyelocytes, myelocytes,and metamyelocytes. IG% > 1.0 indicates a left shift is present. With automated differentials, bands are included in the neutrophil count and not in the Immature Granulocyte Percent. Lymphocyte \P\ 0.51 10E3/???L Low 1.51-2.99 [facility] Comment on above: Order Comment: Relea se to patient->Automatic Lymphocytes/100 WBC (Bld) 4.5 % Low 21.8-42.1 [facility] Comment on above: Order Comment: Relea se to patient->Automatic MCH (RBC) [Entitic mass] 31.0 pg Invalid Interpretation Code 25.7-31.2 [facility] Comment on above: Order Comment: Relea se to patient->Automatic MCHC 35.4 % High 31.3-34.0 [facility] Comment on above: Order Comment: Relea se to patient->Automatic MCV (RBC) [Entitic vol] 87.5 fL Invalid Interpretation Code 80.7-93.7 [facility] Comment on above: Order Comment: Relea se to patient->Automatic Monocyte \P\ 0.64 10E3/???L Invalid Interpretation Code 0.36-0.77 [facility] Comment on above: Order Comment: Relea se to patient->Automatic Monocytes/100 WBC (Bld) 5.7 % Invalid Interpretation Code 5.6-10.2 [facility] Comment on above: Order Comment: Relea se to patient->Automatic Neutrophil \P\ 10.10 10E3/???L High 2.43-6.42 [facility] Comment on above: Order Comment: Relea se to patient->Automatic Neutrophils/100 WBC (Bld) 89.2 % High 46.0-68.6 [facility] Comment on above: Order Comment: Relea se to patient->Automatic Nucleated RBC/100 WBC (Bld) [Ratio] 0.0 % Invalid Interpretation Code 0.0-0.0 [facility] Comment on above: Order Comment: Relea se to patient->Automatic Platelet mean volume (Bld) [Entitic vol] 10.1 fL Invalid Interpretation Code 9.6-11.9 [facility] Comment on above: Order Comment: Relea se to patient->Automatic Platelets 261 10E3/???L Invalid Interpretation Code 150-400 [facility] Comment on above: Order Comment: Relea se to patient->Automatic RBC 4.81 10E6/???L Invalid Interpretation Code 4.03-4.91 [facility] Comment on above: Order Comment: Relea se to patient->Automatic WBC 11.3 10E3/???L High 4.9-10.0 [facility] Comment on above: Order Comment: Relea se to patient->Automatic COMPREHENSIVE METABOLIC PANE Kyree 12-05-2024 Albumin [Mass/Vol] 4.5 g/dL Invalid Interpretation Code 3.5-5.0 [facility] Comment on above: Order Comment: Relea se to patient->Automatic ALP [Catalytic activity/Vol] 71 U/L Invalid Interpretation Code 35-104 [facility] Comment on above: Order Comment: Relea se to patient->Automatic Result Comment: Hemo lysis detected. Results may be falsely decreased. Interpret results with caution. ALT [Catalytic activity/Vol] 12 U/L Invalid Interpretation Code <=34 [facility] Comment on above: Order Comment: Relea se to patient->Automatic Result Comment: Hemo lysis detected. Results may be falsely elevated. Interpret results with caution. AST [Catalytic activity/Vol] 104 U/L High <=31 [facility] Comment on above: Order Comment: Relea se to patient->Automatic Result Comment: Hemo lysis detected. Results may be falsely elevated. Interpret results with caution. BILI,TOTAL 0.6 mg/dL Invalid Interpretation Code <=1.0 [facility] Comment on above: Order Comment: Relea se to patient->Automatic Result Comment: Hemo lysis detected. Results may be impacted variably as either falsely elevated or falsely decreased. Interpret results with caution. Calcium [Mass/Vol] 9.4 mg/dL Invalid Interpretation Code 7.6-11.0 [facility] Comment on above: Order Comment: Relea se to patient->Automatic Chloride [Moles/Vol] 98 mmol/L Invalid Interpretation Code 96-108 [facility] Comment on above: Order Comment: Relea se to patient->Automatic CO2 [Moles/Vol] 20.8 mmol/L Low 22.0-29.0 [facility] Comment on above: Order Comment: Relea se to patient->Automatic Result Comment: Hemo lysis detected. Results may be impacted variably as either falsely elevated or falsely decreased. Interpret results with caution. Creatinine [Mass/Vol] 0.67 mg/dL Invalid Interpretation Code 0.50-1.00 [facility] Comment on above: Order Comment: Relea se to patient->Automatic Result Comment: Hemo lysis detected. Results may be falsely decreased. Interpret results with caution. GFR/1.73 sq M.predicted among non-blacks MDRD (S/P/Bld) [Vol rate/Area] mL/min/{1.73_m2} Invalid Interpretation Code >=60 [facility] Comment on above: Order Comment: Relea se to patient->Automatic Glucose [Mass/Vol] 139 mg/dL High 70-99 [facility] Comment on above: Order Comment: Relea se to patient->Automatic Result Comment: Crit birdie for Diagnosis of Diabetes: Fasting Specimen (no caloric intake for at least 8 hours): <100 mg/dL Normal 100-125 mg/dL Increased risk for Diabetes >125 mg/dL Diagnostic for Diabetes Random Glucose (any time of day without regard to last meal): > or = 200 mg/dL plus Classic Symptoms of Diabetes Potassium [Moles/Vol] 8.7 mmol/L Critically high 3.3-5.1 [facility] Comment on above: Order Comment: Relea se to patient->Automatic Result Comment: Hemo lysis detected. Results may be falsely elevated. Interpret results with caution. This result was previously suppressed from the chart. Protein [Mass/Vol] 8.6 g/dL High 5.9-8.4 [facility] Comment on above: Order Comment: Relea se to patient->Automatic Result Comment: Hemo lysis detected. Results may be falsely elevated. Interpret results with caution. Sodium [Moles/Vol] 128 mmol/L Low 133-145 [facility] Comment on above: Order Comment: Relea se to patient->Automatic Urea nitrogen [Mass/Vol] 8 mg/dL Invalid Interpretation Code 4-19 [facility] Comment on above: Order Comment: Relea se to patient->Automatic Complete Blood Count with Di fferentialOrdered By: Briseyda Dubon on 12-05-2024 Basophils (Bld) [#/Vol] 0.02 10*3/uL [facility] Basophils/100 WBC (Bld) 0.2 % Low 0.3 - 0.9 % [facility] Eosinophils (Bld) [#/Vol] 0 10*3/uL Low [facility] Eosinophils/100 WBC (Bld) 0 % Low 0.6 - 3.8 % [facility] Erythrocyte distribution width (RBC) [Ratio] 11.1 % Low 11.9 - 14.8 % [facility] Hematocrit (Bld) [Volume fraction] 42.1 % 35.5 - 44.6 % [facility] Hemoglobin (Bld) [Mass/Vol] 14.9 g/dL High 11.4 - 14.8 g/dL [facility] Immature granulocytes/100 WBC (Bld) 0.4 % 0.2 - 0.5 % [facility] Comment on above: Immature Granulocyte Percent includes promyelocytes, myelocytes,and metamyelocytes. IG% > 1.0 indicates a left shift is present. With automated differentials, bands are included in the neutrophil count and not in the Immature Granulocyte Percent. Interpretation and review of laboratory results Abnormal [facility] Lymphocytes (Bld) [#/Vol] 0.51 10*3/uL Low [facility] Lymphocytes/100 WBC (Bld) 4.5 % Low 21.8 - 42.1 % [facility] MCH (RBC) [Entitic mass] 31 pg 25. 7 - 31.2 pg [facility] MCHC (RBC) [Mass/Vol] 35.4 % High 31.3 - 34.0 % [facility] MCV (RBC) [Entitic vol] 87.5 fL 80.7 - 93.7 fL [facility] Monocytes (Bld) [#/Vol] 0.64 10*3/uL [facility] Monocytes/100 WBC (Bld) 5.7 % 5.6 - 10.2 % [facility] Neutrophils (Bld) [#/Vol] 10.1 10*3/uL High [facility] Neutrophils/100 WBC (Bld) 89.2 % High 46.0 - 68.6 % [facility] Nucleated RBC/100 WBC (Bld) [Ratio] 0 % 0.0 - 0.0 % [facility] Platelet mean volume (Bld) [Entitic vol] 10.1 fL 9.6 - 11.9 fL [facility] Platelets (Bld) [#/Vol] 261 10*3/uL [facility] RBC (Bld) [#/Vol] 4.81 10*6/uL [facility] WBC (Bld) [#/Vol] 11.3 10*3/uL [facility] Comprehensive metabolic pane kyree 12-05-2024 Albumin BCG dye [Mass/Vol] 4.5 g/dL 3.5 - 5.0 g/dL [facility] ALP [Catalytic activity/Vol] 71 U/L 35 - 104 U/L [facility] Comment on above: Hemolysis detected. Results may be falsely decreased. Interpret results with caution. ALT With P-5'-P [Catalytic activity/Vol] 12 [facility]/L [facility] Comment on above: Hemolysis detected. Results may be falsely elevated. Interpret results with caution. AST With P-5'-P [Catalytic activity/Vol] 104 U/L High NINF - 31 U/L [facility] Comment on above: Hemolysis detected. Results may be falsely elevated. Interpret results with caution. Bilirubin [Mass/Vol] 0.6 mg/dL NINF - 1.0 mg/dL [facility] Comment on above: Hemolysis detected. Results may be impacted variably as either falsely elevated or falsely decreased. Interpret results with caution. Calcium [Mass/Vol] 9.4 mg/dL 7.6 - 11. 0 mg/dL [facility] Chloride [Moles/Vol] 98 mmol/L 96 - 10 8 mmol/L [facility] Creatinine [Mass/Vol] 0.67 mg/dL 0.50 - 1.00 mg/dL [facility] Comment on above: Hemolysis detected. Results may be falsely decreased. Interpret results with caution. eGFR - PINF [facility] Glucose [Mass/Vol] 139 mg/dL High 70 - 99 mg/dL [facility] Comment on above: Criteria for Diagnos is of Diabetes: Fasting Specimen (no caloric intake for at least 8 hours): <100 mg/dL Normal 100-125 mg/dL Increased risk for Diabetes >125 mg/dL Diagnostic for Diabetes Random Glucose (any time of day without regard to last meal): > or = 200 mg/dL plus Classic Symptoms of Diabetes HCO3 (P) [Moles/Vol] 20.8 mmol/L Low 22.0 - 29.0 mmol/L [facility] Comment on above: Hemolysis detected. Results may be impacted variably as either falsely elevated or falsely decreased. Interpret results with caution. Interpretation and review of laboratory results Abnormal [facility] Potassium (BldA) [Moles/Vol] 8.7 mmol/L Critically high 3.3 - 5.1 mmol/L [facility] Comment on above: Hemolysis detected. Results may be falsely elevated. Interpret results with caution. This result was previously suppressed from the chart. Protein [Mass/Vol] 8.6 g/dL High 5.9 - 8.4 g/dL [facility] Comment on above: Hemolysis detected. Results may be falsely elevated. Interpret results with caution. Sodium [Moles/Vol] 128 mmol/L Low 133 - 145 mmol/L [facility] Urea nitrogen [Mass/Vol] 8 mg/dL 4 - 19 mg/d L [facility] ED Provider Progress Noteon 12-05-2024 [employer] Professor Authentication Interface Message Text Dorita Quiñones : 2005 Chief Complaint Patient presents with Tachycardia Near Syncope Allergies Allergen Reactions Other Other (See Comments) [place]- emesis and fever DOS: 12/05/2024 Dorita is a 19 year old female with PTSD presenting with pre-syncope. She states last night she felt nauseous, sore throat, nasal congestion, post-nasal drip, light-headed, and felt like heart was racing. Woke up today still feeling the same. Denies emesis, diarrhea, cough. Decreased PO intake today since waking up at noon. Normal urine output. Feels like heart is racing but no current heart palpitations. States she has had heart palpitations in the past and previously saw cardiology for them. Endorses feeling light headed when she stands up. Denies chest pain. Boyfriend and his parents with upper respiratory symptoms the past day. With review of patient's growth chart, it appears she has been under weight for several years. When discussing weight she states that she eats three meals a day and drinks fluids. She does endorse fatigue on a daily basis. She recalls having lab work done in the past for it. Last menstrual cycle was 2 weeks ago. The history is provided by the patient. No print traffic manager was used. Review of Systems Review of Systems Constitutional: Positive for appetite change. Negative for fever. HENT: Positive for congestion, postnasal drip, rhinorrhea and sore throat. Respiratory: Negative for cough and chest tightness. Cardiovascular: Negative for chest pain and palpitations. Gastrointestinal: Positive for nausea. Negative for abdominal pain, diarrhea and vomiting. Genitourinary: Negative for decreased urine volume, dysuria, frequency and urgency. Musculoskeletal: Negative for myalgias. Skin: Negative for rash. Neurological: Positive for light-headedness. Negative for headaches. Patient History History reviewed. No pertinent past medical history. History reviewed. No pertinent surgical history. Pediatric History Patient Parents CAMI QUIÑONES (Mother) Other Topics Concern Not on file Social History Narrative Not on file ED Triage Vitals Date and Time Temp Temp src Pulse Resp BP SpO2 User 12/05/24 1347 37.8 C (100 F) Temporal 134 20 139/86 98 % AD Physical Exam Vitals and nursing note reviewed. Constitutional: General: She is not in acute distress. Appearance: Normal appearance. HENT: Head: Normocephalic and atraumatic. Right Ear: Tympanic membrane normal. Left Ear: Tympanic membrane normal. Nose: Nose normal. No congestion. Mouth/Throat: Mouth: Mucous membranes are moist. Pharynx: Posterior oropharyngeal erythema present. Eyes: Conjunctiva/sclera: Conjunctivae normal. Cardiovascular: Rate and Rhythm: Regular rhythm. Tachycardia present. Pulses: Normal pulses. Heart sounds: Normal heart sounds. No murmur heard. Pulmonary: Effort: Pulmonary effort is normal. Breath sounds: Normal breath sounds. No wheezing, rhonchi or rales. Abdominal: General: Abdomen is flat. Bowel sounds are normal. There is no distension. Palpations: Abdomen is soft. Tenderness: There is no abdominal tenderness. Skin: General: Skin is warm and dry. Capillary Refill: Capillary refill takes less than 2 seconds. Neurological: Mental Status: She is alert. Procedures Encounter Documentation/Hando ff: Diagnosis' considered: Labs/Radiology: Recent Results (from the past 24 hours) HCG, Urine Collection Time: 12/05/24 4:04 PM Result Value Ref Range HCG,Urine Negative Negative Urinalysis, Complete (Chemistry & Micro) Collection Time: 12/05/24 4:04 PM Result Value Ref Range Color Colorless Character Clear Specific [place] 1.009 Reference Range: 1.005-1.030 Leukocyte Esterase Negative Negative Asya/uL Nitrite Negative Negative pH 8.0 5.0 - 8.0 Hemoglobin Negative Negative Protein Negative Neg.-Trace Glucose Normal Normal KETONES 1+ (A) Negative Urobilinogen Normal Normal mg/dL Bilirubin Negative Negative Volume 12 mL WBC 2.0 <=20.0 /uL RBC 8.0 <=20.0 /uL Squamous Epithelial Cells 1.0 <=20.0 /uL Transitional Epithelial Cells 0.0 <=20.0 /uL Renal Epithelial Cells 0.0 <=20.0 /uL Influenza A/B, Qualitative NAAT Collection Time: 12/05/24 4:04 PM Specimen: Nasal; Swab Result Value Ref Range Influenza A, Qualitative NAAT Negative Negative Influenza B, Qualitative NAAT Negative Negative Complete Blood Count with Differential Collection Time: 12/05/24 4:55 PM Result Value Ref Range WBC 11.3 (H) 4.9 - 10.0 10E3/ L Nucleated RBC Percent 0.0 0.0 - 0.0 % RBC 4.81 4.03 - 4.91 10E6/ L Hemoglobin 14.9 (H) 11.4 - 14.8 g/dL Hematocrit 42.1 35.5 - 44.6 % MCV 87.5 80.7 - 93.7 fL MCH 31.0 25.7 - 31.2 pg MCHC 35.4 (H) 31.3 - 34.0 % RDW CV 11.1 (L) 11.9 - 14.8 % Platelets 261 150 - 400 10E3/ L MPV 10.1 9.6 - 11.9 fL % Immature Granulocyte 0.4 0.2 - 0.5 % Neutrophil # 10.10 (H) 2.43 - 6.42 10E3/ L Lymphocyte (more content not included)... Normal [facility] HCG, URINEon 12-05-2024 Beta HCG ( test) Ql (U) Negative Invalid Interpretation Code Negative [facility] Comment on above: Order Comment: Reaso n for preventing automatic release->Other Release to patient->Manual release only Result Comment: Nonp regnant females and males-Negative females-Positive HCG, UrineOrdered By: Briana daniels on 12-05-2024 HCG ( test) Ql (U) Negative Negative [facility] Comment on above: Non females and males-Negative females-Positive Interpretation and review of laboratory results Normal [facility] INFLUENZA A/B QUALITATIVE NA ATon 12-05-2024 INFLUENZA A/B QUALITATIVE NAAT Influenza A, Qualitative NAAT Negative Influenza B, Qualitative NAAT Negative Invalid Interpretation Code Negative [facility] Comment on above: Order Comment: Negat shaw results do not preclude influenza virus infection and should not be used as the sole basis for diagnosis, treatment or other patient management decisions. Method: Rapid molecular in vitro diagnostic test utilizing isothermal nucleic acid amplification technology for the differential and qualitative detection of influenza A and influenza B viral nucleic acids using the ID NOW Influenza A & B 2 assay from [employer]. This test is approved for use by the FDA as waived under CLIA. Release to patient->Automatic Influenza A/B, Qualitative N AATon 12-05-2024 FLUAV RNA FEDERICA+probe Ql (Resp) Negative Negative [facility] FLUBV RNA FEDERICA+probe Ql (Resp) Negative Negative [facility] Interpretation and review of laboratory results Normal [facility] Negative results do not preclude influenza virus infection and should not be used as the sole basis for diagnosis, treatment or other patient management decisions. Method: Rapid molecular in vitro diagnostic test utilizing isothermal nucleic acid amplification technology for the differential and qualitative detection of influenza A and influenza B viral nucleic acids using the ID NOW Influenza A & B 2 assay from [employer]. This test is approved for use by the FDA as waived under CLIA. [facility] MAGNESIUMon 12-05-2024 Magnesium [Mass/Vol] 2.0 mg/dL Invalid Interpretation Code 1.5-2.2 [facility] Comment on above: Order Comment: Relea se to patient->Automatic Result Comment: Hemo lysis detected. Results may be falsely elevated. Interpret results with caution. MagnesiumOrdered By: Backgro und Lab on 12-05-2024 Magnesium [Mass/Vol] 2 mg/dL 1.5 - 2 .2 mg/dL [facility] Comment on above: Hemolysis detected. Results may be falsely elevated. Interpret results with caution. Microtainer Red Topon 2024 [facility] No Panel InformationOrdered By: Background Lab on 12-05-2024 Interpretation and review of laboratory results Normal [facility] PHOSPHORUSon 12-05-2024 Phosphate [Mass/Vol] 2.7 mg/dL Invalid Interpretation Code 2.7-4.5 [facility] Comment on above: Order Comment: Relea se to patient->Automatic Result Comment: Hemo lysis detected. Results may be falsely elevated. Interpret results with caution. Phosphoruson 12-05-2024 Phosphate [Mass/Vol] 2.7 mg/dL 2.7 - 4 .5 mg/dL [facility] Comment on above: Hemolysis detected. Results may be falsely elevated. Interpret results with caution. RESPIRATORY PANEL FILM ARRAY on 12-05-2024 RESPIRATORY PANEL FILM ARRAY Adenovirus Not Detected Coronavirus 229E Not Detected Coronavirus HKU1 Detected Coronavirus NL63 Not Detected Coronavirus OC43 Detected Severe Acute Respiratory Syndrome Coronavirus 2 Not Detected Human metapneumovirus Not Detected Human Rhinovirus/Enterovi cadence Not Detected Influenza A Not Detected Influenza B virus Not Detected Parainfluenza Virus 1 Not Detected Parainfluenza Virus 2 Not Detected Parainfluenza Virus 3 Not Detected Parainfluenza virus 4 Not Detected Respiratory Syncytial Virus Not Detected Bordetella parapertussis Not Detected Bordetella pertussis (ptxP) Not Detected Chlamydia pneumoniae Not Detected Mycoplasma pneumoniae Not Detected Invalid Interpretation Code Not Detected [facility] Comment on above: Order Comment: The R espiratory Panel FilmArray detects DNA or RNA from the following organisms: Adenovirus, Coronavirus (including common [place] strains 229E, HKU1, NL63, and OC43), Severe Acute Respiratory Syndrome Coronavirus 2 (SARS-CoV-2), Human Metapneumovirus, Human Rhinovirus/Enterovirus, Influenza A (including subtypes H1, H1-2009, and H3), Influenza B, Parainfluenza Virus (including Types 1, 2, 3, and 4), Respiratory Syncytial Virus, Bordetella parapertussis (IS 1001), Bordetella pertussis (ptxP), Chlamydia pneumoniae, and Mycoplasma pneumoniae. Note: Negative results do not preclude infection and should not be used as the sole basis for treatment or other patient management decisions. Negative results must be combined with clinical observations, patient history, and epidemiological information. Method: The [employer] Respiratory Panel 2.1 (RP2.1) is a multiplexed nucleic acid test intended for the simultaneous qualitative detection and differentiation of multiple viral and bacterial respiratory organisms, including Severe Acute Respiratory Syndrome Coronavirus 2 (SARS-CoV-2) This test is FDA De Arvind authorized. Release to patient->Automatic Respiratory Panel Film Array (RFA)Ordered By: Isabel Saldana on 12-05-2024 Adenovirus DNA FEDERICA+non-probe Ql (Nph) Not detected Not Detected [facility] B. parapertussis [id number] DNA FEDERICA+non-probe Ql (Nph) Not detected Not Detected [facility] B. pertussis DNA FEDERICA+probe Ql (Unsp spec) Not detected Not Detected [facility] C. pneumoniae DNA FEDERICA+non-probe Ql (Nph) Not detected Not Detected [facility] FLUAV RNA FEDERICA+non-probe Ql (Nph) Not detected Not detected [facility] FLUBV RNA FEDERICA+non-probe Ql (Nph) Not detected Not Detected [facility] HCoV 229E RNA FEDERICA+non-probe Ql (Nph) Not detected Not Detected [facility] HCoV HKU1 RNA FEDERICA+non-probe Ql (Nph) Detected Abnormal Not Detected [facility] HCoV NL63 RNA FEDERICA+non-probe Ql (Nph) Not detected Not Detected [facility] HCoV OC43 RNA FEDERICA+non-probe Ql (Nph) Detected Abnormal Not Detected [facility] hMPV RNA FEDERICA+non-probe Ql (Nph) Not detected Not Detected [facility] Interpretation and review of laboratory results Abnormal [facility] M. pneumoniae DNA FEDERICA+non-probe Ql (Nph) Not detected Not Detected [facility] Parainfluenza virus 1 RNA FEDERICA+probe Ql (Unsp spec) Not detected Not Detected [facility] Parainfluenza virus 2 RNA FEDERICA+probe Ql (Unsp spec) Not detected Not Detected [facility] Parainfluenza virus 3 RNA FEDERICA+probe Ql (Unsp spec) Not detected Not Detected [facility] Parainfluenza virus 4 RNA FEDERICA+probe Ql (Unsp spec) Not detected Not Detected [facility] Rhinovirus+Enterovirus RNA FEDERICA+non-probe Ql (Nph) Not detected Not Detected [facility] RSV RNA FEDERICA+non-probe Ql (Nph) Not detected Not Detected [facility] SARS-CoV-2 (COVID-19) RNA FEDERICA+non-probe Ql (Nph) Not detected Not Detected [facility] The Respiratory Panel FilmArray detects DNA or RNA from the following organisms: Adenovirus, Coronavirus (including common [place] strains 229E, HKU1, NL63, and OC43), Severe Acute Respiratory Syndrome Coronavirus 2 (SARS-CoV-2), Human Metapneumovirus, Human Rhinovirus/Enterovi cadence, Influenza A (including subtypes H1, H1-2009, and H3), Influenza B, Parainfluenza Virus (including Types 1, 2, 3, and 4), Respiratory Syncytial Virus, Bordetella parapertussis (IS 1001), Bordetella pertussis (ptxP), Chlamydia pneumoniae, and Mycoplasma pneumoniae. Note: Negative results do not preclude infection and should not be used as the sole basis for treatment or other patient management decisions. Negative results must be combined with clinical observations, patient history, and epidemiological information. Method: The [employer] Respiratory Panel 2.1 (RP2.1) is a multiplexed nucleic acid test intended for the simultaneous qualitative detection and differentiation of multiple viral and bacterial respiratory organisms, including Severe Acute Respiratory Syndrome Coronavirus 2 (SARS-CoV-2) This test is FDA De Arvind authorized. [facility] TSH WITH REFLEX TO T4, FREEo n 12-05-2024 TSH 1.550 ???IU/mL Invalid Interpretation Code 0.300-4.200 [facility] Comment on above: Order Comment: Relea se to patient->Automatic TSH with Reflex to T4, Freeo n 12-05-2024 Interpretation and review of laboratory results Normal [facility] TSH Qn 1.55 m[IU]/L [facility] URINALYSIS, COMPLETEon 12-05 Bilirubin Ql (U) Negative Invalid Interpretation Code Negative [facility] Comment on above: Order Comment: Relea se to patient->Automatic Character Clear Invalid Interpretation Code [facility] Comment on above: Order Comment: Relea se to patient->Automatic Color (U) Colorless Invalid Interpretation Code [facility] Comment on above: Order Comment: Relea se to patient->Automatic Glucose Ql (U) Normal Invalid Interpretation Code Normal [facility] Comment on above: Order Comment: Relea se to patient->Automatic Ketones Ql (U) 1+ Abnormal Negative [facility] Comment on above: Order Comment: Relea se to patient->Automatic Leukocyte esterase Test strip Ql (U) Negative Invalid Interpretation Code Negative [facility] Comment on above: Order Comment: Relea se to patient->Automatic Nitrite Ql (U) Negative Invalid Interpretation Code Negative [facility] Comment on above: Order Comment: Relea se to patient->Automatic pH (U) 8.0 [pH] Invalid Interpretation Code 5.0-8.0 [facility] Comment on above: Order Comment: Relea se to patient->Automatic Protein Ql (U) Negative Invalid Interpretation Code Neg.-Trace [facility] Comment on above: Order Comment: Relea se to patient->Automatic RBC (U) [#/Vol] 8.0 /uL Invalid Interpretation Code <=20.0 [facility] Comment on above: Order Comment: Relea se to patient->Automatic Renal Epithelial Cells 0.0 /uL Invalid Interpretation Code <=20.0 [facility] Comment on above: Order Comment: Relea se to patient->Automatic Specific gravity (U) [Rel density] 1.009 Invalid Interpretation Code Reference Range: 1.005-1.030 [facility] Comment on above: Order Comment: Relea se to patient->Automatic Squamous Epithelial Cells 1.0 /uL Invalid Interpretation Code <=20.0 [facility] Comment on above: Order Comment: Relea se to patient->Automatic Transitional Epithelial Cells 0.0 /uL Invalid Interpretation Code <=20.0 [facility] Comment on above: Order Comment: Relea se to patient->Automatic Urobilinogen Normal Invalid Interpretation Code Normal [facility] Comment on above: Order Comment: Relea se to patient->Automatic Volume 12 mL Invalid Interpretation Code [facility] Comment on above: Order Comment: Relea se to patient->Automatic WBC (U) [#/Vol] 2.0 /uL Invalid Interpretation Code <=20.0 [facility] Comment on above: Order Comment: Relea se to patient->Automatic Urinalysis, Complete (Chemis try & Micro)on 12-05-2024 Bilirubin Ql (U) Negative Negative [facility] Character Clear [facility] Color (U) Colorless [facility] Epithelial cells.non-squamous Auto Ql (U) 0 /[facility]L [facility] - [facility] /uL [facility] Epithelial cells.renal Computer assisted Ql (U) 0 /uL NINF - 20.0 /uL [facility] Epithelial cells.squamous Auto Ql (U) 1 /uL NINF - 20.0 /uL [facility] Glucose Auto test strip Ql (U) Normal Normal [facility] Hemoglobin Auto test strip Ql (U) Negative Negative [facility] Interpretation and review of laboratory results Abnormal [facility] Ketones (U) [Mass/Vol] 1+ Abnormal Negative [facility] Leukocyte esterase Auto test strip Ql (U) Negative Negative Asya/uL [facility] Nitrite Ql (U) Negative Negative [facility] pH (U) 8.0 [pH] 5.0 - 8.0 [facility] Protein (U) [Mass/Vol] Negative Neg.-Trace [facility] RBC Ql (U) 8 /uL NINF - 20.0 /uL [facility] Specific gravity Refractometry automated (U) [Rel density] 1.009 Reference Range: 1.005-1.030 [facility] Specimen volume (U) 12 mL [facility] Urobilinogen (U) [Mass/Vol] Normal Normal mg/dL [facility] WBC Auto Ql (U) 2 /uL NINF - 20.0 /uL [facility] Urgent Care Visit Reporton 0 07-20-2024 Urgent Care Visit Report [facility] [address], [address] [place] [address] OFFICE VISIT Date of Service: 07/20/24 MR#: [id number] Acct: [id number] Name: DORITA QUIÑONES Rep #: [id number] : 2005 Provider: MARIELA Graham Age/Sex: 18/F Location: [email or web address] Status: Signed Intake Vital Signs 03/02/24 12:32 07/20/24 17:45 Height 5 ft 4 in BP 106/70 Blood Pressure Location Lt brachial Position Sitting Respiration 15 Pulse 111 H Pulse Source NIBP Temp 99.7 F H Temp Source Temporal Pulse Oximetry (%) 97 Oxygen Delivery Method room air Intake Visit Reasons: SORE THROAT Chief Complaint: ST, face pain, chest congestion Dress Marker Required: No Is patient in pain?: Yes Allergies turkey Adverse Reaction (Verified 07/20/24 17:46) Fever and skin rash Is last menstrual period known: No Post menopausal: No Patient : No Have you fallen in the past year?: No Nurse's Note: ST, face pain, chest congestion x 7 days. denies CASTILLO, fever, BA PFSH Medical History COVID Panic attack PTSD (post-traumatic stress disorder) Family History Grandmother Cancer Lung- Maternal Social History current occupational status: unemployed Smoking Status: Never smoker alcohol intake: never substance use type: does not use seatbelt use: always do you feel safe at home: Yes additional social history: Currently at [employer] but transferring to [facility] [employer] major HPI HPI Chief Complaint: ST, face pain, chest congestion Details: DORITA QUIÑONES, is a 18 F who presents to the office today for [facility] for approximately 1-week history of progressively worsening facial pressure/congestion with purulent postnasal drip/cough and bilateral ear pressure and sore throat. Occasional chills and nausea - though no complaints of fever, myalgias, fatigue, runny nose, or vomiting/diarrhea. No complaints of chest pain/shortness of breath/dyspnea on exertion. No close contacts with similar complaints. Requesting POC screening for COVID-19 and streptococcal pharyngitis. No other associated symptoms and no other alleviating/aggrava ting factors. ROS Const Constitutional: No other (as above) Exam Const General: cooperative, healthy appearing and no acute distress Nutritional Appearance: average body habitus Orientation: alert, awake and oriented x3 HENMT Head: normal to inspection Ears: hearing grossly normal bilaterally, external ears normal, TM's normal bilaterally and EAC's normal Nose: external nose normal, nares normal, septum normal and no nasal discharge Face and sinus: normal facial exam, sinuses nontender (Though bilateral maxillary fullness to palpation) and face symmetric Mouth: oral mucosae normal, lip normal, tongue normal and oropharynx normal Throat: posterior oropharynx normal, tonsils bilateral trace erythema without exudate or hypertrophy, uvula midline and postnasal drainage (Purulent) Eyes General: appearance normal, both eyes and all related structures Neck Neck: normal visual inspection, full ROM, no meningeal signs, supple and lymphadenopathy (Bilateral anterior cervical lymph node swelling/tender to palpation) Neck mass: No Thyroid: thyroid normal Chest Chest palpation inspection: normal inspection of the chest Resp Effort Inspection: normal respiratory effort and able to speak in complete sentences Auscultation: Bilateral: Clear to Auscultation Cardio Palpation: normal PMI Rate: tachycardic Rhythm: regular rhythm Heart Sounds: S1 normal, S2 normal, no gallops, no murmurs and no rubs Pulses: radial pulses present GI Inspection: normal to inspection Skin General: no rashes or lesions noted Neuro General: patient alert, patient awake and patient oriented x3 Cognition: normal cognition Speech: speech normal Psych Appearance: grossly normal Mental Status: mental status grossly normal Mood: congruent mood Affect: normal affect Speech and Movement: speech and movement normal Attitude: cooperative Diagnoses Acute maxillary sinusitis, unspecified J01.00 Contact with or exposure to other viral diseases Z20.828 Assessment and Plan Assessment and Plan (1) Acute maxillary sinusitis, unspecified: Status: Acute (2) Contact with or exposure to other viral diseases: Status: Acute Plan: See POC results. Amoxicillin as prescribed today. Supportive measures as instructed today. Follow-up with PCP in 3 to 5 days should symptoms not improve, sooner should symptoms worsen or any other concerns develop. Patient states acknowledging understanding all the above Resu (more content not included)... Normal [facility] Transvaginal Non-on 07-15-2024 Transvaginal Non- [facility] Imaging Services [address] [place] [id number] Transvaginal Non- MR#: [id number] Acct: [id number] Name: DORITA QUIÑONES Rep #: [id number] : 2005 F 18 From: Aric arias MD PCP: Dr. Shine Castro MD Status: [facility] Study: Transvaginal Non- Date of Exam: Exam# [id number] Ordering Dr: Shine Castro MD -[id number] STUDY: ULTRASOUND OF THE FEMALE PELVIS - COMPLETE REASON FOR EXAM: Female, 18 years old. MENSTRUAL CRAMPS LMP: July 04, 2024. TECHNIQUE: Transvaginal TECHNICAL QUALITY: Adequate. COMPARISON: None. FINDINGS: The uterus is anteverted and is in a midline position. The uterus measures 6 cm x 3.4 cm x 2.5 cm. Normal uterine cervix. The endometrium measures 5.7 mm in thickness, and is heterogeneous (striated). There is no demonstrated endometrial mass. There is no demonstrated myometrial mass. I.U.D. - The patient does not have an I.U.D. The right ovary is visualized. The right ovary measures 1.8 cm x 1.9 cm x 1.4 cm. There is no right ovarian cyst or ovarian mass. There is no visualized right adnexal mass or complex lesion. There is normal arterial and normal venous vascularity. The left ovary is visualized. The left ovary measures 2.7 cm x 2.2 cm x 2 cm. There is no left ovarian cyst or ovarian mass. There is no visualized left adnexal mass or complex lesion. There is normal arterial and normal venous vascularity. There is no fluid in the cul-de-sac. US/Transvaginal Non- IMPRESSION: Normal female pelvis. Electronically Signed: Aric Carrillo MD at 12:43 EDT , CC: Dr. Shine Castro MD Certified Pesticide Applicator: Signed Normal [facility] Absolute lymphocyte countOrd ered By: Candy Ashley on 03-02-2024 Lymphocytes Auto (Unsp spec) [#/Vol] 1.53 10*3/uL 0.83-4.51 [facility] Automated lymphocyte count a s percentage of total leukocytesOrdered By: Candy Ashley on 03-02-2024 Lymphocytes/100 WBC Auto (Unsp spec) 26.9 % 19-41 [facility] Basophil percentageOrdered B y: Candy Ashley on 03-02-2024 Basophils/100 WBC (Bld) 0.5 % 0-1 [facility] Chloride [Moles/Vol] 107 mmol/L 98-107 [facility] Eosinophils/100 WBC (Bld) 0.7 % 0-5 [facility] Glucose [Mass/Vol] 94 mg/dL 74-106 [facility] Hemoglobin (Bld) [Mass/Vol] 14.2 g/dL 12.0-15.0 [facility] Monocytes/100 WBC (Bld) 7.4 % 0-10 [facility] Neutrophils (Bld) [#/Vol] 3.6 10*3/uL 2.0-7.7 [facility] Neutrophils/100 WBC (Bld) 64.1 % 47-70 [facility] Potassium [Moles/Vol] 3.5 mmol/L 3.5-5.1 [facility] Sodium [Moles/Vol] 138 mmol/L 136-145 [facility] WBC (Bld) [#/Vol] 5.7 10*3/uL 4.4-11.0 [facility] Determination of erythrocyte mean corpuscular volume (MCV)Ordered By: Candy Ashley on 03-02-2024 MCV (RBC) [Entitic vol] 90.1 fL 81-99 [facility] Erythrocyte distribution wid th ratioOrdered By: Candyangel Ashley on 03-02-2024 Erythrocyte distribution width (RBC) [Ratio] 11.6 % 11.6-14.6 [facility] Erythrocyte distribution wid th standard deviationOrdered By: Candy Ashley on 03-02-2024 Erythrocyte distribution width (RBC) [Entitic vol] 38.2 fL 35.1-43.9 [facility] Hematocrit Auto (Bld) [Volum e fraction]Ordered By: Candy Ashley on 03-02-2024 Hematocrit (Bld) [Volume fraction] 41.8 % 37-47 [facility] Immature granulocytes/100 WB C Auto (Bld)Ordered By: Candy Ashley on 03-02-2024 Immature granulocytes/100 WBC (Bld) 0.400 % 0.0-0.9 [facility] Comment on above: IG% - Immature Granu locytes (promyelocytes, myelocytes and metamyelocytes) > 1% indicates that a LEFT SHIFT is Present. Laboratory - Chemistry and C hemistry - challengeOrdered By: Candy Ashley on 03-02-2024 CO2 [Moles/Vol] 26.0 mmol/L 21.0-32.0 [facility] Urea nitrogen/Creatinine [Mass ratio] 13.1 mg/mg 10-20 [facility] Laboratory - Hematology and Cell countsOrdered By: Candy Ashley on 03-02-2024 MCH (RBC) [Entitic mass] 30.6 pg 27.0-32.0 [facility] MCHC (RBC) [Mass/Vol] 34.0 g/dL 32-36 [facility] Nucleated RBC/100 WBC (Bld) [Ratio] 0 % 0-5 [facility] Platelet mean volume (Bld) [Entitic vol] 9.4 fL 6.2-12.0 [facility] Platelets (Bld) [#/Vol] 317 10*3/uL 150-450 [facility] No Panel InformationOrdered By: Candy Ashley on 03-02-2024 Estimated GFR (MDRD) Amer 124 mL/min >60 [facility] Comment on above: GFR Calc Estimated GFR (MDRD) Non-Af Amer 102 mL/min >60 [facility] Comment on above: Non- GFR Calc RBC Auto (Bld) [#/Vol]Ordere d By: Candy Ashley on 03-02-2024 RBC (Bld) [#/Vol] 4.64 10*6/uL 4.2-5.4 [facility] Serum or plasma calcium chelsea urement (mass/volume)Ordered By: Candy Ashley on 03-02-2024 Calcium [Mass/Vol] 9.7 mg/dL 8.5-10.1 [facility] Serum or plasma choriogonado tropin detectionOrdered By: Candy Ashley on 03-02-2024 HCG ( test) Ql Negative [facility] Serum or plasma creatinine m easurement (mass/volume)Ordered By: Candy Ashley on 03-02-2024 Creatinine [Mass/Vol] 0.76 mg/dL 0.55-1.02 [facility] Comment on above: The validity of the calculated GFR & GFRAA in patients over 70 years has not been determined. Clinical correlation is essential. Serum or plasma urea nitroge n measurement (mass/volume)Ordered By: Candy Ashley on 03-02-2024 Urea nitrogen [Mass/Vol] 10 mg/dL 7-18 [facility] Thin prep Papanicolaou smear with manual screeningOrdered By: Candy Ashley on 03-02-2024 Thin prep Papanicolaou smear with manual screening 5 5-15 [facility] Laboratory - Microbiology an d Antimicrobial susceptibilityon 11-07-2023 S. pyogenes Ag IA Ql (Unsp spec) Negative [facility] Absolute lymphocyte counton 08-21-2022 Lymphocytes Auto (Unsp spec) [#/Vol] 2.23 10*3/uL 0.83-4.51 [facility] Work Phone: Basophil percentageon 2021 Basophils/100 WBC (Bld) 0.6 % 0-1 [facility] Work Phone: Chloride [Moles/Vol] 107 mmol/L 98-107 [facility] Work Phone: Eosinophils/100 WBC (Bld) 1.0 % 0-5 [facility] Work Phone: Glucose [Mass/Vol] 86 mg/dL 74-106 [facility] Work Phone: Neutrophils (Bld) [#/Vol] 2.6 10*3/uL 2.0-7.7 [facility] Work Phone: Neutrophils/100 WBC (Bld) 48.9 % 47-70 [facility] Work Phone: Potassium [Moles/Vol] 3.7 mmol/L 3.5-5.1 [facility] Work Phone: Sodium [Moles/Vol] 138 mmol/L 136-145 [facility] Work Phone: WBC (Bld) [#/Vol] 5.2 10*3/uL 4.4-11.0 [facility] Work Phone: Blood erythrocytes count (nu mber/volume)on 08-21-2022 RBC (Bld) [#/Vol] 4.66 10*6/uL 4.2-5.4 [facility]: [phone] Blood hemoglobin measurement (mass/volume)on 08-21-2022 Hemoglobin (Bld) [Mass/Vol] 14.5 g/dL 12.0-15.0 [facility] Work Phone: [phone] Blood lymphocytes/100 leukoc yteson 08-21-2022 Lymphocytes/100 WBC (Bld) 42.6 % 19-41 [facility] Work Phone: [phone] Blood monocytes/100 leukocyt eson 08-21-2022 Monocytes/100 WBC (Bld) 6.7 % 0-10 [facility] Work Phone: [phone] Blood platelet mean volumeon 08-21-2022 Platelet mean volume (Bld) [Entitic vol] 10.1 fL 6.2-12.0 [facility] Work Phone: [phone] Determination of erythrocyte mean corpuscular volume (MCV)on 08-21-2022 MCV (RBC) [Entitic vol] 91.8 fL 81-99 [facility] Work Phone: [phone] Hematocrit Auto (Bld) [Volum e fraction]on 08-21-2022 Hematocrit (Bld) [Volume fraction] 42.8 % 37-47 [facility] Work Phone: [phone] Iron measurement (mass/mass) on 08-21-2022 Iron (Unsp spec) [Mass/Mass] 152 ug/dL 50-170 [facility] Work Phone: [phone] Laboratory - Chemistry and C hemistry - challengeon 08-21-2022 CO2 [Moles/Vol] 26.0 mmol/L 21.0-32.0 [facility] Work Phone: [phone] Cobalamin (Vitamin B12) [Mass/Vol] 415 pg/mL 211-911 [facility] Work Phone: [phone] Free T4 [Mass/Vol] 1.04 ng/dL 0.76-1.46 [facility] Work Phone: [phone] Magnesium [Mass/Vol] 2.2 mg/dL 1.6-2.[address] [facility] Work Phone: Urea nitrogen/Creatinine [Mass ratio] 7.2 mg/mg 10-20 [facility] Work Phone: [phone] Laboratory - Hematology and Cell countson 08-21-2022 Erythrocyte distribution width (RBC) [Entitic vol] 38.8 fL 35.1-43.9 [facility] Work Phone: [phone] Erythrocyte distribution width (RBC) [Ratio] 11.6 % 11.6-14.6 [facility] Work Phone: [phone] Immature granulocytes/100 WBC (Bld) 0.200 % 0.0-0.9 [facility] Work Phone: [phone] Comment on above: IG% - Immature Granu locytes (promyelocytes, myelocytes and metamyelocytes) > 1% indicates that a LEFT SHIFT is Present. MCH (RBC) [Entitic mass] 31.1 pg 27.0-32.0 [facility] Work Phone: [phone] Nucleated RBC/100 WBC (Bld) [Ratio] 0 % 0-5 [facility] Work Phone: [phone] MCHC Auto (RBC) [Mass/Vol]on 08-21-2022 MCHC (RBC) [Mass/Vol] 33.9 g/dL 32-36 [facility] Work Phone: No Panel Informationon 08-21 Estimated GFR (MDRD) Amer 114 mL/min >60 [facility] Work Phone: Comment on above: GFR Calc Estimated GFR (MDRD) Non-Af Amer 94 mL/min >60 [facility] Work Phone: Comment on above: Non- GFR Calc Thyroid Stimulating Hormone (TSH) 1.37 uIU/mL 0.358-3.74 [facility] Work Phone: Total Iron Binding Capacity 376 ug/dL 250-450 [facility] Work Phone: Platelets bldon 08-21-2022 Platelets (Bld) [#/Vol] 283 10*3/uL 150-450 [facility] Work Phone: Serum or plasma calcitriol m easurement (mass/volume)on 08-21-2022 1,25-dihydroxyvitamin D3 [Mass/Vol] 54.5 pg/mL 24.8-81.5 [facility] Work Phone: Comment on above: Please note refere nce interval changePerformed at: - Lab[address] [id number] Director: Cong Mckeon MD, Phone: [phone] Serum or plasma calcium chelsea urement (mass/volume)on 08-21-2022 Calcium [Mass/Vol] 9.6 mg/dL 8.5-10.1 [facility] Work Phone: Serum or plasma creatinine m easurement (mass/volume)on 08-21-2022 Creatinine [Mass/Vol] 0.83 mg/dL 0.55-1.02 [facility] Work Phone: Comment on above: The validity of the calculated GFR & GFRAA in patients over 70 years has not been determined. Clinical correlation is essential. Serum or plasma iron saturat ion measurement (mass fraction)on 08-21-2022 Iron saturation [Mass fraction] 40.4 % 15.0-55.0 [facility] Work Phone: Serum or plasma urea nitroge n measurement (mass/volume)on 08-21-2022 Urea nitrogen [Mass/Vol] 6 mg/dL -18 [facility] Work Phone: [phone] Thin prep Papanicolaou smear with manual screeningon 08-21-2022 Thin prep Papanicolaou smear with manual screening 5 5-15 [facility] Work Phone: Laboratory - Microbiology an d Antimicrobial susceptibilityon 07-10-2022 SARS-CoV-2 (COVID-19) RNA [place]+probe Ql (Unsp spec) Not detected [facility] Work Phone: [phone] S. pyogenes Ag IA Ql (Unsp spec) Negative [facility] Work Phone: No Panel Informationon 07-10 Influenza Types A,B Rapid (Clinic) Not detected [facility] Work Phone: Vital Signs Date Time Vital Sign Value Performing Clinician Facility 01-29-2025 07:35-0400 Body temperature 97.4 [degF] Shine Castro MD Work Phone: [facility] 01-29-2025 07:35-0400 Diastolic blood pressure 87 mm[Hg] Shine Castro MD Work Phone: [facility] 01-29-2025 07:35-0400 Heart rate 88 /min Shine Castro MD Work Phone: [facility] 01-29-2025 07:35-0400 Respiratory rate 17 /min Shine Castro MD Work Phone: [facility] 01-29-2025 07:35-0400 SaO2% (BldA) [Mass fraction] 99 % Shine Castro MD Work Phone: [facility] 01-29-2025 07:35-0400 Systolic blood pressure 110 mm[Hg] Shine Castro MD Work Phone: [facility] 01-29-2025 05:13-0400 Body height 162.56 cm Shine Castro MD Work Phone: [facility] 01-29-2025 05:13-0400 Body mass index (BMI) [Ratio] 15.3 kg/m2 Shine Castro MD Work Phone: [facility] 01-29-2025 05:13-0400 Body weight 40.4 kg Shine Castro MD Work Phone: [facility] 12-05-2024 19:15-0500 Body temperature 100.8 [degF] Ronda Stuart MD Work Phone: [facility] 12-05-2024 19:15-0500 Heart rate 108 /min Ronda Stuart MD Work Phone: [facility] 12-05-2024 19:15-0500 SaO2% (BldA) [Mass fraction] 97 % Ronda Stuart MD Work Phone: [facility] 12-05-2024 16:01-0500 Diastolic blood pressure 80 mm[Hg] Ronda Stuart MD Work Phone: [facility] 12-05-2024 16:01-0500 Respiratory rate 12 /min Ronda Stuart MD Work Phone: [facility] 12-05-2024 16:01-0500 Systolic blood pressure 126 mm[Hg] Ronda Stuart MD Work Phone: [facility] 12-05-2024 13:47-0500 Body weight 40.45 kg Ronda Stuart MD Work Phone: [facility] 03-02-2024 14:11-0400 Body temperature 98.1 [degF] [facility] Work Phone: [phone])753-791262 [place] [address] 03-02-2024 14:11-0400 Diastolic blood pressure 89 mm[Hg] [facility] Work Phone: [phone])879-998162 [place] [address] 03-02-2024 14:11-0400 Heart rate 93 /min [facility] Work Phone: [phone])[phone] [place] [address] 03-02-2024 14:11-0400 Respiratory rate 18 /min [facility] Work Phone: [phone])753-151462 [place] [address] 03-02-2024 14:11-0400 SaO2% (BldA) [Mass fraction] 99 % [facility] Work Phone: [phone])[phone] [place] [address] 03-02-2024 14:11-0400 Systolic blood pressure 128 mm[Hg] [facility] Work Phone: [phone])201-847362 [place] [address] 03-02-2024 12:32-0400 Body height 162.56 cm [facility] Work Phone: [phone])076-709662 [place] [address] 01-07-2024 10:44-0500 Body mass index (BMI) [Ratio] 15.8 kg/m2 [facility] Work Phone: [phone])287-351662 [place] [address] 01-07-2024 10:44-0500 Body weight 40.59 kg [facility] Work Phone: 7(963)517-509562 [place] [address] 01-07-2024 10:44-0500 Diastolic blood pressure 78 mm[Hg] [facility] Work Phone: 6(531)690-901962 [place] [address] 01-07-2024 10:44-0500 Systolic blood pressure 102 mm[Hg] [facility] Work Phone: 9(813)363-904862 [place] [address] 11-07-2023 17:30-0500 Body temperature 100.6 [degF] [facility] Work Phone: 3(145)703-591262 [place] [address] 11-07-2023 17:30-0500 Diastolic blood pressure 66 mm[Hg] [facility] Work Phone: 1(563)656-007862 [place] [address] 11-07-2023 17:30-0500 Heart rate 118 /min [facility] Work Phone: [phone])450-220462 [place] [address] 11-07-2023 17:30-0500 Respiratory rate 12 /min [facility] Work Phone: 3(988)562-097162 [place] [address] 11-07-2023 17:30-0500 SaO2% (BldA) [Mass fraction] 99 % [facility] Work Phone: [phone])861-119462 [place] [address] 11-07-2023 17:30-0500 Systolic blood pressure 102 mm[Hg] [facility] Work Phone: [phone](659)260-839462 [place] [address] 03-11-2023 12:54-0400 Body height 160.02 cm [facility] 03-11-2023 12:54-0400 Body mass index (BMI) [Percentile] Per age and sex 0.4 % [facility] 03-11-2023 12:54-0400 Body mass index (BMI) [Ratio] 16.3 kg/m2 [facility] 03-11-2023 12:54-0400 Body temperature 97.8 [degF] [facility] 03-11-2023 12:54-0400 Body weight 41.82 kg [facility] 03-11-2023 12:54-0400 Diastolic blood pressure 86 mm[Hg] [facility] 03-11-2023 12:54-0400 Heart rate 130 /min [facility] 03-11-2023 12:54-0400 Respiratory rate 18 /min [facility] 03-11-2023 12:54-0400 SaO2% (BldA) [Mass fraction] 97 % [facility] 03-11-2023 12:54-0400 Systolic blood pressure 125 mm[Hg] [facility] 07-10-2022 14:23-0400 Body temperature 98.6 [degF] No Primary Care Physician [facility] Work Phone: 07-10-2022 14:23-0400 Diastolic blood pressure 68 mm[Hg] No Primary Care Physician [facility] Work Phone: 07-10-2022 14:23-0400 Heart rate 119 /min No Primary Care Physician [facility] Work Phone: 07-10-2022 14:23-0400 Respiratory rate 14 /min No Primary Care Physician [facility] Work Phone: 07-10-2022 14:23-0400 SaO2% (BldA) [Mass fraction] 99 % No Primary Care Physician [facility] Work Phone: 07-10-2022 14:23-0400 Systolic blood pressure 102 mm[Hg] No Primary Care Physician [facility] Work Phone: Encounters Encounter Date Encounter Type Care Provider Facility Start: 06-04-2025 End: 06-04-2025 Telemedicine consultation with patient Mary Ann Rivero OUTSIDE SALES ACCOUNT MANAGER Work Phone: Neurology Start: 06-04-2025 End: 06-04-2025 ambulatory Mary Ann Rivero APRN.OUTSIDE SALES ACCOUNT MANAGER Work Phone: Neurology Comment on above: POTS (postural ortho static tachycardia syndrome) (Primary Dx); Hypermobility of joint; Other fatigue Start: 06-03-2025 End: 06-03-2025 Patient encounter procedure Autonomic 1 Neur Main Work Phone: Neurology Start: 06-03-2025 End: 06-03-2025 ambulatory [facility] Comment on above: Procedure Start: 05-24-2025 End: 05-24-2025 Patient encounter procedure Autonomic 1 Neur Main Work Phone: Neurology Start: 05-24-2025 End: 05-24-2025 ambulatory [facility] Start: 04-08-2025 End: 04-08-2025 ambulatory HONG Clark GAN Facility:[facility] Start: 03-10-2025 Non-patient / Non-visit Dr. Janet rodríguez MD -[facility] Start: 03-10-2025 End: 03-10-2025 ambulatory Shine Castro MD Work Phone: [facility] Work Phone: Start: 03-10-2025 End: 03-10-[address] Shine Castro MD -Cardiovascular Services Work Phone: Start: 03-09-2025 End: 03-10-2025 ambulatory Shine Castro MD Work Phone: [facility] Work Phone: Start: 03-09-2025 End: 03-09-[address] Shine Castro MD -Ultrasound, [facility] Work Phone: Start: 03-09-2025 End: 03-09-2025 ambulatory Shine Castro Facility:[facility] Start: 03-05-2025 End: 03-05-2025 Telemedicine consultation with patient Hong Hardinging CAMP DISHWASHER.OUTSIDE SALES ACCOUNT MANAGER Work Phone: Neurology Start: 03-05-2025 End: 03-05-2025 ambulatory Hong P Gan CAMP DISHWASHER.OUTSIDE SALES ACCOUNT MANAGER Work Phone: Neurology Comment on above: Orthostatic lighthea dedness (Primary Dx); Tachycardia; Acephalgic migraine; Impaired regulation of body temperature; Temperature intolerance; Paresthesia; Chronic fatigue Start: 01-29-2025 End: 01-29-2025 Emergency department patient visit Shine Castro MD Work Phone: -Emergency Department Work Phone: Start: 12-05-2024 End: 12-05-2024 Emergency department patient visit Ronda Stuart MD Work Phone: [facility] Comment on above: Acute febrile illnes s (Primary Dx) Start: 07-20-2024 End: 07-20-2024 ambulatory Chalsocorro Lizandro [place] Start: 07-15-2024 End: 07-15-2024 ambulatory [facility] Facility:[facility] Start: 03-02-2024 End: 03-02-2024 Emergency department [facility] Start: 01-07-2024 End: 01-07-2024 Patient encounter procedure [facility] Work Phone: [facility] Work Phone: Start: 11-07-2023 End: 11-07-2023 Patient encounter procedure [facility] Work Phone: [facility] Work Phone: Start: 03-11-2023 End: 03-11-2023 [facility] Start: 08-21-2022 End: 08-21-2022 ambulatory No Primary Care Physician [facility] Work Phone: Start: 08-21-2022 End: 08-21-2022 Patient encounter procedure No Primary Care Physician [facility] Start: 07-10-2022 End: 07-10-2022 Patient encounter procedure No [facility] Start: 10-10-2006 Patient encounter status Hong Elvia CAMP DISHWASHER.OUTSIDE SALES ACCOUNT MANAGER Work Phone: [facility] Procedures Date Procedure Procedure Detail Performing Clinician Start: 03-09-2025 US scan of thyroid Alexi Castro MD Work Phone: Start: 01-29-2025 Plain chest X-ray Peter Castro MD Work Phone: Start: 01-29-2025 Estimated creatinine clearance Shine Castro MD Work Phone: Start: 12-05-2024 End: 12-05-2024 Assay of magnesium Leigh Gibson DO Work Phone ([phone]): [phone] Comment on above: Order Comment: Relea se to patient->Automatic Start: 12-05-2024 Comprehensive metabo lic 2000 panel - Serum or Plasma Leigh Adriana Arthur LARKIN Work Phone (unformatted): [phone] Start: 12-05-2024 EXTRA TUBES Ronda Dorman MD Work Phone: Start: 12-05-2024 MICROTAINER RED TOP Jay Stuart MD Work Phone: Start: 12-05-2024 TSH WITH REFLEX TO T 4, FREE Leigh Adriana Gibson Work Phone (unformatted): [phone] Start: 12-05-2024 Urine test visual color cmprsn meths Ronda Stuart MD Work Phone: Start: 12-05-2024 Urnls dip stick/tabl et reagent auto microscopy Ronda Stuart MD Work Phone: Start: 03-11-2023 X-ray of cervical spine Plan of Treatment Date Care Activity Detail Author Start: 06-20-2026 Urine microalbumin profile DTaP,Tdap,Td Vaccine (7 - Td or Tdap) [facility] Start: 08-17-2025 End: 08-17-2025 Patient encounter procedure 08/17/2025 11:00 AM EDT Office Visit Neurology [address] [id number] Mary Ann Rivero, VINCENT.OUTSIDE SALES ACCOUNT MANAGER [address] [place], [place] [id number] POTS exam (left arm) Neurology Comment on above: POTS exam (left arm) Start: 07-05-2025 Influenza vaccination [facility] Start: 06-04-2025 End: 06-04-2025 ambulatory 06/04/2025 2:00 PM EDT [facility] [address] [id number] Mary Ann Rivero APRN.OUTSIDE SALES ACCOUNT MANAGER [address] [place] [address] f/u Neurology Comment on above: f/u Start: 06-03-2025 End: 06-03-2025 ambulatory 06/03/2025 4:00 PM EDT Procedure Neurology [address] [place] [address] QSART Neurology Comment on above: QSART Start: 03-05-2025 End: 06-04-2025 25-hydroxyvitamin D3 [Mass/volume] in Serum or Plasma VITAMIN D 25 HYDROXY Lab Routine Chronic fatigue Expected: 03/05/2025, Expires: 06/04/2025 [facility] Comment on above: Expected: 03/05/2025 , Expires: 06/04/2025 Start: 03-05-2025 End: 06-04-2025 CBC W Auto Differential panel - Blood COMPLETE BLOOD COUNT AND DIFFERENTIAL Lab Routine Orthostatic lightheadedness Expected: 03/05/2025, Expires: 06/04/2025 [facility] Work Phone: Comment on above: Expected: 03/05/2025 , Expires: 06/04/2025 Start: 03-05-2025 End: 06-04-2025 Cobalamin (Vitamin B12) [Mass/volume] in Serum or Plasma VITAMIN B12 Lab Routine Paresthesia Chronic fatigue Expected: 03/05/2025, Expires: 06/04/2025 [facility] Comment on above: Expected: 03/05/2025 , Expires: 06/04/2025 Start: 03-05-2025 End: 06-04-2025 Comprehensive metabolic 2000 panel - Serum or Plasma COMPREHENSIVE METABOLIC PANEL Lab Routine Orthostatic lightheadedness Expected: 03/05/2025, Expires: 06/04/2025 [facility] Comment on above: Expected: 03/05/2025 , Expires: 06/04/2025 Start: 03-05-2025 End: 06-04-2025 Corticotropin [Mass/volume] in Plasma ACTH BLD Lab Routine Orthostatic lightheadedness Expected: 03/05/2025, Expires: 06/04/2025 [facility] Comment on above: Expected: 03/05/2025 , Expires: 06/04/2025 Start: 03-05-2025 End: 06-04-2025 Cortisol [Mass/volume] in Serum or Plasma CORTISOL, SERUM Lab Routine Orthostatic lightheadedness Expected: 03/05/2025, Expires: 06/04/2025 [facility] Comment on above: Expected: 03/05/2025 , Expires: 06/04/2025 Start: 03-05-2025 End: 06-04-2025 Ferritin [Mass/volume] in Serum or Plasma FERRITIN Lab Routine Orthostatic lightheadedness Expected: 03/05/2025, Expires: 06/04/2025 [facility] Comment on above: Expected: 03/05/2025 , Expires: 06/04/2025 Start: 03-05-2025 End: 06-04-2025 Hemoglobin A1c in Blood HEMOGLOBIN A1C Lab Routine Paresthesia Expected: 03/05/2025, Expires: 06/04/2025 [facility] Comment on above: Expected: 03/05/2025 , Expires: 06/04/2025 Start: 03-05-2025 End: 06-04-2025 Iron and Iron binding capacity panel - Serum or Plasma IRON AND TIBC Lab Routine Orthostatic lightheadedness Expected: 03/05/2025, Expires: 06/04/2025 [facility] Comment on above: Expected: 03/05/2025 , Expires: 06/04/2025 Start: 01-29-2025 End: 01-29-2025 [facility] Start: 01-29-2025 [facility] Start: 2024 Microscopic observat ion [Identifier] in Cervix by Cyto stain Pap Smear [facility] Start: 2024 Screening for malign ant neoplasm of cervix Cervical Cancer Screening [facility] Start: 07-05-2024 COVID-19 (2023-12 season) COVID-19 () [facility] Start: 07-05-2024 Covid-19 Vaccine () Covid-19 Vaccine () [facility] Start: 07-05-2024 FLU (#1) FLU (#1) [facility] Start: 10-12-2022 GC (Gonorrhea) Screening () GC (Gonorrhea) Screening () [facility] Start: 10-12-2022 Screening for Chlamy gonzales trachomatis Chlamydia Screening () [facility] Start: 2022 Hepatitis B (1 of 3 - 19+ 3-dose series) Hepatitis B (1 of 3 - 19+ 3-dose series) [facility] Start: 2021 Depression Screening Depression Scre ening [facility] Start: 2021 Hearing Screening Hearing Screening [facility] Start: 2021 Hepatitis C screening Hepatitis C Sc reening [facility] Start: 2021 HIV screening HIV Screening [facility] Start: 2019 MenB (1 of 2 - MenB 2-Dose Series Bexsero) MenB (1 of 2 - MenB 2-Dose Series Bexsero) [facility] Start: 2019 Meningococcal B Vacc ine (1 of 2 - Standard) Meningococcal B Vaccine (1 of 2 - Standard) [facility] Start: 2018 HPV (1 - 3-dose series) HPV (1 - 3-d ose series) [facility] Start: 2018 HPV Vaccine (1 - 3-d ose series) HPV Vaccine (1 - 3-dose series) [facility] Start: 2018 Vision Screening Vision Screening [facility] Start: 2017 Peds To Adult Transition Annual Assessment Peds To Adult Transition Annual Assessment [facility] Start: 2016 Varicella (1 of 2 - 13+ 2-dose series) Varicella (1 of 2 - 13+ 2-dose series) [facility] Start: 2015 Peds To Adult Transition Initial Discussion Peds To Adult Transition Initial Discussion [facility] Start: 2010 Tetanus Diphtheria a nd Pertussis Vaccines (1 - Tdap) Tetanus Diphtheria and Pertussis Vaccines (1 - Tdap) [facility] Start: 11-14-2009 MMR (1 of 1 - Standa rd series) MMR (1 of 1 - Standard series) [facility] NEURO CARDIO AUTONOM IC REFLEX W/WO TILT NEURO CARDIO AUTONOMIC REFLEX W/WO TILT Procedures Routine Orthostatic lightheadedness Tachycardia Ordered: 03/05/2025 [facility] Comment on above: Ordered: 03/05/2025 NEURO QSART NEURO QSART Proc edures Routine Orthostatic lightheadedness Impaired regulation of body temperature Temperature intolerance Ordered: 03/05/2025 [facility] Comment on above: Ordered: 03/05/2025 Patient Education [facility] Work Phone: Patient referral [facility] Work Phone: Troponin T.cardiac [Mass/volume] in Serum or Plasma by High sensitivity method [facility] Immunizations Immunization Date Immunization Notes Care Provider Wild case 11-20-2011 poliovirus vaccine, inactivated Hong Gan CAMP DISHWASHER.OUTSIDE SALES ACCOUNT MANAGER Work Phone: [facility] 10-17-2009 novel [id number], all formulations Hong Gan CAMP DISHWASHER.OUTSIDE SALES ACCOUNT MANAGER Work Phone: [facility] 10-22-2008 diphtheria, tetanus toxoids and acellular pertussis vaccine Hong Gan CAMP DISHWASHER.OUTSIDE SALES ACCOUNT MANAGER Work Phone: [facility] 10-22-2008 measles, mumps and rubella virus vaccine Hong Gan CAMP DISHWASHER.OUTSIDE SALES ACCOUNT MANAGER Work Phone: [facility] 10-22-2008 varicella virus vaccine Apolinar y Gan CAMP DISHWASHER.OUTSIDE SALES ACCOUNT MANAGER Work Phone: [facility] 10-10-2006 influenza virus vaccine, unspecified formulation Hong Gan CAMP DISHWASHER.OUTSIDE SALES ACCOUNT MANAGER Work Phone: [facility] 09-10-2005 influenza virus vaccine, unspecified formulation Hong Gan CAMP DISHWASHER.OUTSIDE SALES ACCOUNT MANAGER Work Phone: [facility] 10-18-2004 DTaP-hepatitis B and poliovirus vaccine Hong Gan CAMP DISHWASHER.OUTSIDE SALES ACCOUNT MANAGER Work Phone: [facility] 10-18-2004 pneumococcal conjuga te vaccine, 7 valent Hong Gan CAMP DISHWASHER.OUTSIDE SALES ACCOUNT MANAGER Work Phone: [facility] 10-18-2004 varicella virus vaccine Apolinar y Gan CAMP DISHWASHER.OUTSIDE SALES ACCOUNT MANAGER Work Phone: [facility] 09-13-2004 haemophilus influenz ae type b vaccine, HbOC conjugate Hong Gan CAMP DISHWASHER.OUTSIDE SALES ACCOUNT MANAGER Work Phone: [facility] 09-13-2004 influenza virus vaccine, unspecified formulation Hong Gan CAMP DISHWASHER.OUTSIDE SALES ACCOUNT MANAGER Work Phone: [facility] 09-13-2004 measles, mumps and rubella virus vaccine Hong Gan CAMP DISHWASHER.OUTSIDE SALES ACCOUNT MANAGER Work Phone: [facility] 01-31-2004 DTaP-hepatitis B and poliovirus vaccine Hong Gan CAMP DISHWASHER.OUTSIDE SALES ACCOUNT MANAGER Work Phone: [facility] 01-31-2004 haemophilus influenz ae type b vaccine, HbOC conjugate Hong Gan CAMP DISHWASHER.OUTSIDE SALES ACCOUNT MANAGER Work Phone: [facility] 01-31-2004 pneumococcal conjuga te vaccine, 7 valent Hong Gan CAMP DISHWASHER.OUTSIDE SALES ACCOUNT MANAGER Work Phone: [facility] 2003 DTaP-hepatitis B and poliovirus vaccine Hong Gan CAMP DISHWASHER.OUTSIDE SALES ACCOUNT MANAGER Work Phone: [facility] 2003 haemophilus influenz ae type b vaccine, HbOC conjugate Hong Gan CAMP DISHWASHER.OUTSIDE SALES ACCOUNT MANAGER Work Phone: [facility] 2003 pneumococcal conjuga te vaccine, 7 valent Hong Gan CAMP DISHWASHER.OUTSIDE SALES ACCOUNT MANAGER Work Phone: [facility] 2003 DTaP-hepatitis B and poliovirus vaccine Hong Gan CAMP DISHWASHER.OUTSIDE SALES ACCOUNT MANAGER Work Phone: [facility] Work Phone: 2003 haemophilus influenz ae type b vaccine, HbOC conjugate Hong Gan CAMP DISHWASHER.OUTSIDE SALES ACCOUNT MANAGER Work Phone: [facility] 2003 pneumococcal conjuga te vaccine, 7 valent Hong Gan CAMP DISHWASHER.OUTSIDE SALES ACCOUNT MANAGER Work Phone: [facility] Payers Date Payer Category Payer Self-pay [id number] 2022 Medicaid [id number] 2022 Medicaid [id number] 2003 Unknown [id number] Unknown [employer] [id number] Unknown [employer] [id number] Unknown [id number] Unknown [facility] [id number] 1 [id number] Unknown [id number] [id number] Unknown [id number] [id number] Unknown [id number] [id number] Unknown [id number] Unknown [id number] Unknown [id number] Social History Date Type Detail Facility Start: 07-10-2022 End: 03-02-2024 Tobacco smoking status MIIS Unknown if ever smoked [facility] Start: 2003 Sex Assigned At Female W [facility] Start: 2003 Sex assigned at Not on file [facility] Start: 03-05-2025 End: 06-02-2025 Gender identity Not on file [facility] Start: 11-20-2011 End: 01-29-2025 Tobacco smoking status NHIS Never smoked tobacco (finding) [facility] Start: 01-29-2025 Sex Female (finding) [facility] Start: 11-20-2011 Tobacco use and exposure Smokeless tobacco non-user [facility] Start: 03-05-2025 Alcoholic beverage intake Current non-drinker of alcohol (finding) [facility] Start: 03-05-2025 End: 06-02-2025 History of Social function [facility] National Score (1-100), lower number is lower risk 80 [facility] Start: 10-19-2021 Gender identity Identifies as female gender (finding) [facility] Start: 10-19-2021 Sexual orientation Bisexual (finding ) [facility] NEGATED: Highlighted row [facility] Mental Status Date Assessment Result Facility 01-29-2025 Cognitive function Level Of Cons ciousness Awake;Alert;Appropriate [facility] Work Phone: Clinical Notes 12-05-2024 to 06-04-2025 Patient InstructionsMary Ann Rivero APRN.CNP - 06/04/2025 2:00 PM Sissy Vazquez - 06/03/2025 5:02 PM Claudia Biggs - 05/24/2025 2:19 PM EDCaro Soliz RN - 12/05/2024 1:47 PM EST Note Date & Type Note Facility 06-04-2025 Instructions Mary Ann Rivero APRN.CNP - 06/04/2025 2:24 PM EDT Propranolol 10mg twice a day Midodrine 2.5mg twice a day as needed for systolics < 100 Consult to PT Consult to rheumatology Follow up 3-4 months Propranolol is a beta radha we are using for heart rate control in your POTS. There are other uses for beta blockers such as for high blood pressure, migraine prevention, tremor, heart disease and heart failure treatment. Side effects that may occur are dizziness, fatigue, exercise intolerance, depression and decreased blood pressure or heart rate. Fatigue and dizziness should decrease with time. Please notify the office if you experience any side effects at [phone]. You can also send a [employer] message. If it is emergent, go the emergency room. Closely monitor your heart rate and blood pressure. Beta blockers are commonly used in the management of Postural Orthostatic Tachycardia Syndrome (POTS), particularly for patients with the hyperadrenergic subtype. Here's a breakdown: Mechanism of Action Beta blockers work by blocking beta-adrenergic receptors, which are part of the sympathetic nervous system. This reduces the effects of adrenaline (epinephrine) and norepinephrine, leading to: Decreased heart rate: By blocking beta-1 receptors in the heart, beta blockers help blunt the excessive heart rate increase seen in POTS patients upon standing. Reduced cardiac output: This helps alleviate symptoms like palpitations and tachycardia. Selective vs. Non-selective: Cardioselective beta blockers (e.g., atenolol, metoprolol) primarily target beta-1 receptors in the heart, while non-selective ones (e.g., propranolol) also affect beta-2 receptors in the lungs and blood vessel While beta blockers can be effective, they may cause: Fatigue and lightheadedness: These are common and may worsen symptoms in some POTS patients. Headaches: A potential side effect that may lead to discontinuation. Respiratory issues: Non-selective beta blockers can constrict airways, posing risks for individuals with asthma. Mood changes: Emotional depression is possible, though less likely compared to other medications. Blood sugar effects: They may interfere with blood sugar regulation, requiring caution in diabetic patients. Beta blockers are often started at low doses and adjusted based on individual response. They are not a cure for POTS but can significantly improve quality of life for some patients. If you're considering this treatment, consulting a healthcare provider is essential to tailor the approach to your specific needs MIDODRINE Midodrine works to increase your vascular tone, reducing blood pooling and increasing BP. [place] with midodrine you have to monitor your blood pressure so that it does not rise to high. If your blood pressure is over with the top number of 150 I need to know. Please use your blood pressure machine at home to check your readings. You can ask your family doc's nurse to see if your machine's reads correlate with the doc's office readings by doing readings back to back on the two different devices. With midodrine you can not lay down for 3-4 hours after dose. Take your last dose of the day at least 4 hours before bedtime. It is recommended you should elevate the head of the bed on cinder blocks if you are someone who will need to lay down after a dose. Initial symptoms can be headaches and dizziness. You can use tylenol to treat, and these symptoms should dissipate in the first few weeks. You can sometimes feel a crawling sensation of the scalp. Like all medications, there is some risk of allergic reaction. Conservative Measures: Make all postural changes from lying to sitting or sitting to standing slowly. Drink to 2.0 -2.5 L of fluids per day. With bad symptoms, drink 500 cc of water quickly. This will result in an increased blood pressure within 5 minutes of drinking the water. The effect will last up to one hour and may improve orthostatic intolerance. Increase sodium in the diet to 3 - 5 g per day. If not helpful and BP is stable, may try 5-7 g per day. IF BLOOD PRESSURE RISES OR IS RISING CUT BACK ON SALT LOADING. Sugar free Liquid IV, Nuun tabs, powerade / gatorade (zero formulations are OK), pedialyte, LMNT, Body Armor, booey, salt chews, drip drop are all OK. Avoid large meals which can cause low blood pressure during digestion. It is better to eat smaller meals more often than three large meals. Avoid alcohol. Alcohol and cause blood to pool in the legs which may worsen low blood pressure reactions when standing. Avoid excessive caffeine intake as it may increase urine production and reduce blood volume. Perform lower extremity exercises to improve strength of the leg muscles. This will help prevent blood from a pooling in the legs when standing and walking. Preferred exercises are walking, squatting or stationery bicycling. An increased exercise duration by weekly should be considered. Use custom fitted elastic support stockings. These will reduce a tendency for blood to pool in the legs when standing and may improve orthostatic intolerance. Please try 30-40 mmHg compression. Raise the head of the bed by 6 to 10 inches. The entire bed must be at an angle. Raising only the head portion of the bed at waist level or using pillows will not be effective. Raising the head of the bed will reduce urine formation overnight and there will be more volume in the circulation in the morning. Use physical counter maneuvers such as leg crossing, or leg raising and resting the leg on a chair. These maneuvers increase blood pressure and can improve orthostatic intolerance quickly and transiently. documented in this encounter [facility] 06-04-2025 History of Presen t illness Narrative Images from the original note were not included. [facility] Follow-Up VIRTUAL VISIT This is a virtual visit using [employer]RE[employer] for [employer] Video Visit. It required patient-provider interaction for the medical decision making as documented below. I have communicated my name and active licensure. The patient's identity and physical location were verified at the time of this visit. Either the patient or their legal territory sales representative has been informed of the risks and benefits of -- and alternatives to -- treatment through a remote evaluation and consents to proceed with the evaluation remotely. Dorita Quiñones is a 19 year old female here today for a follow up. Dorita Quiñones has a has a past medical history of Migraine, intractable. Previously established patient of Hong Gan CNP. She will be transitioning care as Hong Gan CNP is no longer in practice. . Last Visit 03/05/2025 - Neuromuscular, Hong Gan APRN.KULWANT ASSESSMENT Dorita Quiñones is a 19 year old here today for initial evaluation. Dorita Quiñones has a has a past medical history of Migraine, intractable. Here today for assessment of symptoms with onset after COVID infection in 2021. 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 Described as central vision loss followed by scintillating scotoma and then peripheral vision loss, lasting 30-60 minutes. Sometimes had numbness of the arms or hands with symptoms. Never followed by a headache. Reportedly had normal CT Brain w/ contrast, though I cannot see these images today. The migraines resolved after about 6 months, most likely making them post viral. The current issues have also been ongoing since her COVID infection. Reports postural lightheadedness and tachycardia. She also has low-normal blood pressure, which may elevate during episodic worsening of symptoms. Other autonomic features including chronic constipation, heat intolerance, temperature dysregulation, urinary frequency. She also experiences pre-syncope with blood draws. These symptoms raise concern for autonomic dysfunction such as POTS. Will obtain ANS with tilt, as well as QSART to rule out autonomic neuropathy. Also discussed some trouble swallowing food or pills, has a globus sensation at times. Deferred swallow evaluation today, can reconsider if symptoms become more bothersome. She also has intermittent numbness of the L arm, and rarely the R arm. Denies red flag cervical spine symptoms. Advised on red flag symptoms / when to update urgently / go to ER. Will assess further in person. We review I will be leaving [facility] Neurology in March. Information was sent via [facility] advising her to schedule with one of my colleagues for follow up care. PLAN 1) Labs (6-8 AM) 2) Autonomic reflex w/ tilt 3) QSART 4) Send me: -Thyroid labs -Echo -quality assurance monitor 5) Physical counter pressure maneuvers explained + sent via [facility] 6) Evaluation of arm numbness pending in person exam Today June 04, 2025 : We reviewed testing in office today Got uma in 2021 Started having visual migraines daily. Stopped after 6 months Had chronic fatigue States she does have issues where she loses feeling in her arm or hand Her POTS symptoms started after flu this winter States she took a zyrtec after she got the flu her heart rates were so high wouldn't come down She's sensitive to antihistamines She [place] doctor [place] Resting HR 60-80s just relaxed If she takes propranolol it can lower her HR too low BP seems to be okay but sometimes can raise to high - 170/90 when she was in the ER last If she pushes herself to hard she can't sleep, starts vomiting from tachycardia, shaking, couldn't keep water down Gave her an IV got her HR down from 160 to 90 Denies LOC States salt doesn't always help her but potassium does Heat intolerance States before her menstrual cycle her BP is really low 90s Thyroid is overactive she will fax reports Her T3 and T4 was normal She feels she's hypermobile No aids around the house but out in public she can't walk to far has to use a wheel chair She gets hot, chest burning, legs hurt, blood pooling, fatigue, shortness of breath Current management of orthostatic condition Exercise: currently nothing, doing to much she feels to fatigued, muscles not intact-heavy Water: 120 Salt: body armour , if she's not feeling bad does electrolyte, sugar free gatorade Stockings: just started this, but heat intolerant. Current Medications for orthostatic condition Propranolol 10mg as needed - doesn't take it Prior Medications for orthostatic condition propranolol Clonidine Medications Reviewed midodrine (PROAMATINE) 2.5 mg tablet Take 1 tablet by mouth two times a day as needed. For systolic < 100 propranolol (INDERAL) 10 mg tablet Take 1 tablet by mouth two times a day. Allergies Reviewed PAST MEDICAL HISTORY: ACTIVE PROBLEM LIST Routine Or Child Health Check Anxiety PAST SURGICAL HISTORY Procedure Laterality Date NONE Social History Tobacco Use Smoking status: Never Smokeless tobacco: Never Substance Use Topics Alcohol use: No Drug use: No family history is not on file. EXAM: Exam is observational at best. General Appearance: well appearing, in no acute distress Mental status evaluation during the interview and examination showed normal level of consciousness, orientation, language, memory, praxis, and higher intellectual function Affect: Normal Speech: normal Cranial Nerves: III, IV, -EOMI: full. VII-face is symmetric without evidence of weakness. VIII-hearing intact. XII-tongue protrudes midline with normal movements. Review of relevant studies: 05/27/2025 ANS with tilt Heart rate response to deep breathing is mildly reduced via the mean heart rate range (MHRR) and the E:I ratio. Heart rate response to the Valsalva maneuver, as assessed by the Valsalva ratio, is normal. Blood pressure responses to phase II and phase IV of the Valsalva maneuver are normal. During 10 minutes of 60 degree head-up tilt, the heart rate disclosed a maximum increment of 81 bpm (normal < 30 bpm) at minute 1 of tilt, and also abnormally increased at minutes 2, 3, 4, 5, 6, 8, 9, and 10. There is no significant increment or decrement in systolic or diastolic blood pressure during the tilt. Patient complained of lightheaded, visual disturbance, very hot and dizzy, can't feel arms, seeing spots, lightheadedness increase, and blood pooling in legs starting to hurt during the tilt. The patient complained of cannot see, and stomach cramps during post tilt recovery. This is a mildly abnormal cardiovascular autonomic test panel due to a mild reduction in the heart rate response to deep breathing. Of note, there were technical difficulties during the testing making a cardio vagal abnormality difficult to interpret. There is also the presence of prominent tachycardia during the tilt test. These findings are nonspecific but in the proper clinical context are consistent with postural orthostatic tachycardia syndrome as well as anxiety and other hyperadrenergic states. There is no evidence of a significant cardiovascular adrenergic abnormality. There is no definite evidence of orthostatic hypotension. Clinical correlation recommended. Time Heart Rate BP Mean Supine 1 min: 71 114/76 90 2 min: 71 118/75 92 3 min: 70 114/75 89 4 min: 72 116/79 93 5 min: 76 115/78 91 Average: 72 115/77 91 Tilted 1 min: 153 154/95 117 2 min: 150 173/72 103 3 min: 138 127/76 96 4 min: 120 129/70 95 5 min: 123 132/83 101 6 min: 111 133/75 98 7 min: 94 136/79 102 8 min: 106 124/66 90 9 min: 120 125/75 94 10 min: 131 115/66 85 Peak Heart Rate Range during TILT: 82 - 181 1 min after tilt: 88 122/61 84 2 min after tilt: 75 117/61 84 IMPRESSION/PLAN: (G90.A) POTS (postural orthostatic tachycardia syndrome) (primary encounter diagnosis) (M24.9) Hypermobility of joint (R53.83) Other fatigue Dorita Quiñones is a 19 year old female here today for follow up. Initial visit with Hong Gan CNP 03/05/2025 for symptoms including postural lightheadedness, tachycardia, low-normal blood pressure, which may elevate during episodic worsening of symptoms, autonomic features including chronic constipation, heat intolerance, temperature dysregulation, urinary frequency, and intermittent numbness of the L arm (rarely the R arm). Symptom onset after COVID infection in 2021. More so following the Flu winter 2023. Recent autonomic testing revealed mild reduction in the heart rate response to deep breathing however there was note for technical interference therefore uncertainty for true cardiovagal abnormality. QSART was normal. She did have POTS on her tilt. She was given propranolol following one of her ER visits for her POTS episodes however she has not taken it yet as she was hesitant due to side effect from a prior medication given during dental procedure, believes it was clonidine. Discussed with patient propranolol 10mg twice a day would be a good option for her POTS. Will prescribe midodrine 2.5mg as needed for systolic < 100. She does report low blood pressures prior to and during menstrual cycle. Recommended increasing conservative measures including hydration, sodium, compression, and exercise. Patient states she is hypermobile. Consult placed for PT and rheumatology for evaluation. Regarding ongoing left arm numbness recommend she reach out to PCP first. Recommend in person exam to address given limitations in virtual visit today. Plan: Propranolol 10mg twice a day Midodrine 2.5mg twice a day as needed for systolics < 100 Consult to PT Consult to rheumatology Follow up 3-4 months - in person I spent a total of 45 minutes on the date of the service which included preparing to see the patient, [id number] patient care, completing clinical documentation, obtaining and/or reviewing separately obtained history, performing a medically appropriate examination, counseling and educating the patient/family/caregiver, and ordering medications, tests, or procedures. Mary Ann Rivero APRN.[facility] Neuromuscular clinic [address] [place] [address]. [id number] Appointment: [phone] Answers submitted by the patient for this visit: Compass 31 (Submitted on 06/02/2025) In the past year, have you ever felt faint, dizzy, goofy, or had difficulty thinking soon after standing up from a sitting or lying position?: Yes In the past year, have you ever noticed color changes in your skin, such as red, white, or purple?: No In the past 5 years, what changes, if any, have occurred in your general body sweating?: I haven't noticed any changes in my sweating Do your eyes feel excessively dry? : Yes Does your mouth feel excessively dry? : Yes For the symptom of dry eyes or dry mouth that you have had for the longest period of time, is this symptom:: Staying about the same In the past year, have you noticed any changes in how quickly you get full when eating a meal?: I haven't noticed any change In the past year, have you felt excessively full or persistently full (bloated feeling) after a meal?: Sometimes In the past year, have you vomited after a meal? : Never In the past year, have you had a cramping or colicky abdominal pain?: Sometimes In the past year, have you had any bouts of diarrhea?: No In the past year, have you been constipated? : Yes In the past year, have you ever lost control of your bladder function?: Never In the past year, have you had difficulty passing urine?: Never In the past year, have you had trouble completely emptying your bladder?: Occasionally In the past year, without sunglasses or tinted glasses, has bright light bothered your eyes?: Constantly In the past year, have you had trouble focusing your eyes?: Constantly Is this most troublesome symptom with your eyes (i.e. sensitivity to bright light or trouble focusing) getting:: Staying about the same (Submitted on 06/02/2025) When standing up, how frequently do you get these feelings or symptoms?: Almost Always How would you rate the severity of these feelings or symptoms?: Moderate In the past year, have these feelings or symptoms that you have experienced:: Gotten much worse (Submitted on 06/02/2025) How frequently are you constipated? : Constantly How severe are these episodes of constipation? : Moderate Is your constipation getting:: Staying the same (Submitted on 06/02/2025) How severe is this sensitivity to bright light?: Moderate (Submitted on 06/02/2025) How severe is this focusing problem? : Moderate documented in this encounter [facility] 06-04-2025 Note HNO ID: [id number] Author: MARY ANN RIVERO APRN.CNP Service: ? Author Type: Nurse Practitioner Type: Progress Notes Filed: 06/04/2025 14:35 Note Text: [facility] Follow-Up VIRTUAL VISIT This is a virtual visit using [employer]RE[employer] for [employer] Video Visit. It required patient-provider interaction for the medical decision making as documented below. I have communicated my name and active licensure. The patient's identity and physical location were verified at the time of this visit. Either the patient or their legal territory sales representative has been informed of the risks and benefits of -- and alternatives to -- treatment through a remote evaluation and consents to proceed with the evaluation remotely. Dorita Quiñones is a 19 year old female here today for a follow up. Dorita Quiñones has a has a past medical history of Migraine, intractable. Previously established patient of Hong Gan CNP. She will be transitioning care as Hong Gan CNP is no longer in practice. . Last Visit 03/05/2025 - Neuromuscular, Hong Gan APRN.[employer]TS[employer] SALES ACCOUNT MANAGER ASSESSMENT Dorita Quiñones is a 19 year old here today for initial evaluation. Dorita Quiñones has a has a past medical history of Migraine, intractable. Here today for assessment of symptoms with onset after COVID infection in 2021. 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 Described as central vision loss followed by scintillating scotoma and then peripheral vision loss, lasting 30-60 minutes. Sometimes had numbness of the arms or hands with symptoms. Never followed by a headache. Reportedly had normal CT Brain w/ contrast, though I cannot see these images today. The migraines resolved after about 6 months, most likely making them post viral. The current issues have also been ongoing since her COVID infection. Reports postural lightheadedness and tachycardia. She also has low-normal blood pressure, which may elevate during episodic worsening of symptoms. Other autonomic features including chronic constipation, heat intolerance, temperature dysregulation, urinary frequency. She also experiences pre-syncope with blood draws. These symptoms raise concern for autonomic dysfunction such as POTS. Will obtain ANS with tilt, as well as QSART to rule out autonomic neuropathy. Also discussed some trouble swallowing food or pills, has a globus sensation at times. Deferred swallow evaluation today, can reconsider if symptoms become more bothersome. She also has intermittent numbness of the L arm, and rarely the R arm. Denies red flag cervical spine symptoms. Advised on red flag symptoms / when to update urgently / go to ER. Will assess further in person. We review I will be leaving [facility] in March. Information was sent via [facility] advising her to schedule with one of my colleagues for follow up care. PLAN 1) Labs (6-8 AM) 2) Autonomic reflex w/ tilt 3) QSART 4) Send me: -Thyroid labs -Echo -quality assurance monitor 5) Physical counter pressure maneuvers explained + sent via [facility] 6) Evaluation of arm numbness pending in person exam Today June 04, 2025 : We reviewed testing in office today Em eaton in 2021 Started having visual migraines daily. Stopped after 6 months Had chronic fatigue States she does have issues where she loses feeling in her arm or hand Her POTS symptoms started after flu this winter States she took a zyrtec after she got the flu her heart rates were so high wouldn't come down She's sensitive to antihistamines She [place] Resting HR 60-80s just relaxed If she takes propranolol it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
== END | disposition home or self-care (01) ==
LOC: MTRAD 15:34
PROVIDERS: PCP Family Medicine; Referring Provider Family Medicine; Visit Provider Family Medicine
DX: M25.512 Pain in left shoulder (principal)
CPT/HCPCS: 73030

== ENCOUNTER → 2025-09-24 | Outpatient (CLI) | payer MEDICAID, SELFPAY ==
[2025-09-27 20:08] LABS: Chlamydia By Nucleic Acid AMP Negative (Negative); Gonococcus By Nucleic Acid AMP Negative (Negative)
== END | disposition home or self-care (01) ==
LOC: LABSPEC 13:14
PROVIDERS: PCP Family Medicine; Referring Provider Advanced Practice Midwife; Visit Provider Advanced Practice Midwife
DX: Z11.3 Encounter for screening for infections with a predominantly sexual mode of transmission (principal); Z12.4 Encounter for screening for malignant neoplasm of cervix
CPT/HCPCS: 87491; 87591; 88175; G0145